=== PATIENT | male | born 1955 | race Caucasian/White ===

== ENCOUNTER 2017-07-19 09:25 | Emergency (ER) | payer MEDICARE, MEDICAID ==
[2017-07-19 09:35] VITALS: BP 153/86
--- NOTE | 2017-07-19 09:56 | EDM.PDOC ---
ED HPI GENERAL MEDICAL PROBLEM - General Chief Complaint: Lower Extremity Injury/Pain Stated Complaint: FELL AND HAS HIP PAIN, Time Seen by Provider: 07/19/17 09:40 Source of Information: Reports: Patient History Limitations: Reports: No Limitations - History of Present Illness INITIAL COMMENTS - FREE TEXT/NARRATIVE: This 61 yo male patient was brought to the ED with left hip pain due to a fall in the shower this morning. The patient reports he slipped while attempting to get out of the shower this morning. The patient is a [facility] patient. The patient reports his current pain is a 6/10 with increased pain with palpation and walking. The patient has not taken anything for temporary symptom relief. The patient's caregiver accompanied him to the ED. Onset: Today Onset Date: 07/19/17 Onset Time: 05:00 Duration: Constant Location: Reports: Lower Extremity, Left (posterior hip) Quality: Reports: Ache, Sharp Severity: Moderate Improves with: Reports: None Worsens with: Reports: None Associated Symptoms: Reports: No Other Symptoms Left Hip Pain Score (Numeric/FACES): 6 - Related Data Allergies Allergy/AdvReac Type Severity Reaction Status Date / Time Milk Containing Products Allergy Cannot Verified 07/19/17 09:44 Remember mold Allergy Cannot Verified 07/19/17 09:44 Remember pollen extracts Allergy Cannot Verified 07/19/17 09:44 Remember ragweed pollen Allergy Cannot Verified 07/19/17 09:44 Remember dust Allergy Cannot Uncoded 07/19/17 09:44 Remember Home Meds: Home Meds Carbamide Peroxide [Debrox] 2 drop OT WEEKLY 12/21/15 [History] Fluticasone Propionate [Flonase] 2 spray NASBOTH DAILY 12/21/15 [History] atorvaSTATin [Lipitor] 40 mg PO BEDTIME 12/21/15 [History] clonazePAM [Clonazepam] 0.5 mg PO BID 12/21/15 [History] Multivitamin [Multivitamins] 1 each PO DAILY 07/19/17 [History] Venlafaxine [Effexor XR] 37.5 mg PO DAILY 07/19/17 [History] Past Medical History Cardiovascular History: Reports: High Cholesterol Gastrointestinal History: Reports: GERD Neurological History: Reports: Other (See Below) Other Neuro History: Mild intellectual disabilites, intermittent explosive disorder, Paraphilia Psychiatric History: Reports: Anxiety, Developmental Delay Social & Family History - Family History Family Medical History: Noncontributory - Tobacco Use Smoking Status *Q: Never Smoker Second Hand Smoke Exposure: No - Recreational Drug Use Recreational Drug Use: No Review of Systems - Review of Systems Review Of Systems: ROS reveals no pertinent complaints other than HPI. ED EXAM, GENERAL - Physical Exam Exam: See Below Exam Limited By: No Limitations General Appearance: Alert, WD/WN, Moderate Distress Eye Exam: Bilateral Eye: EOMI, Normal Inspection, PERRL Ears: Normal External Exam, Normal Canal, Hearing Grossly Normal, Normal TMs Nose: Normal Inspection, Normal Mucosa, No Blood Throat/Mouth: Normal Inspection, Normal Lips, Normal Teeth, Normal Gums, Normal Oropharynx, Normal Voice, No Airway Compromise Head: Atraumatic, Normocephalic Neck: Normal Inspection, Supple, Non-Tender, Full Range of Motion Respiratory/Chest: No Respiratory Distress, Lungs Clear, Normal Breath Sounds, No Accessory Muscle Use, Chest Non-Tender Cardiovascular: Normal Peripheral Pulses, Regular Rate, Rhythm, No Edema, No Gallop, No JVD, No Murmur, No Rub GI/Abdominal: Normal Bowel Sounds, Soft, Non-Tender, No Organomegaly, No Distention, No Abnormal Bruit, No Mass (Male) Exam: Deferred Rectal (Males) Exam: Deferred Back Exam: Normal Inspection, Full Range of Motion, NT Extremities: Normal Range of Motion, No Pedal Edema, Normal Capillary Refill, Leg Pain (left posterior hip and pelvic pain) Neurological: Alert, Oriented, CN II-XII Intact, Normal Cognition, Normal Gait, Normal Reflexes, No Motor/Sensory Deficits Psychiatric: Normal Affect, Normal Mood Skin Exam: Warm, Dry, Intact, Normal Color, No Rash Lymphatic: No Adenopathy Course - Vital Signs Last Recorded V/S: Last Vital Signs Temp 36.9 C 07/19/17 09:34 Pulse 95 07/19/17 09:34 Resp 16 07/19/17 09:34 BP 153/86 H 07/19/17 09:34 Pulse Ox 99 07/19/17 09:34 Departure - Departure Time of Disposition: 10:23 Disposition: Home, Self-Care 01 Condition: Fair Clinical Impression: Contusion of left hip Qualifiers: Encounter type: initial encounter Qualified Code(s): S70.02XA - Contusion of left hip, initial encounter - Discharge Information Instructions: Hip Pain, Contusion, [id number] Forms: ED Department Discharge Care Plan Goals: The patient was advised of the examination and x-ray results during the visit. The patient was advised to take Tylenol or ibuprofen as directed for temporary symptom relief. If the patient has any additional symptoms or concerns, the patient should follow-up with his primary care facility or return to the emergency department.
--- NOTE | 2017-07-19 10:21 | CR ---
Clinical history: 61-year-old male injured in a fall (in shower) complaining of left hip pain. Interpretation: AP pelvis/hips and AP/frog lateral views of the left hip reveal no sign of acute frac ture or hip dislocation. Asymmetric severe lower lumbar disc disease and reactive arthritic changes L4-5 level, on the right. Symmetric spacing normal-appearing SI and hip joints without appreciable arthritic degenerative georges e. No foreign bodies.
== END 2017-07-19 10:37 | disposition home or self-care (01) ==
LOC: DL.ED 09:25
DX: S70.02XA Contusion of left hip, initial encounter (principal); E78.00 Pure hypercholesterolemia, unspecified; F41.9 Anxiety disorder, unspecified; Z79.899 Other long term (current) drug therapy; Z91.048 Other nonmedicinal substance allergy status; Z91.011 Allergy to milk products; W18.2XXA Fall in (into) shower or empty bathtub, initial encounter
CPT/HCPCS: 99283

== ENCOUNTER 2019-08-13 15:30 | Emergency (ER) | payer MEDICARE, MEDICAID ==
[2019-08-13 15:36] VITALS: BP 144/73; PULSE 98
--- NOTE | 2019-08-13 15:52 | EDM.PDOC ---
ED HPI GENERAL MEDICAL PROBLEM - General Chief Complaint: Cardiovascular Problem Stated Complaint: HIGH BP, DISORIENTATION Time Seen by Provider: 08/13/19 15:46 Source of Information: Reports: Family History Limitations: Reports: Altered Mental Status - History of Present Illness INITIAL COMMENTS - FREE TEXT/NARRATIVE: family states pt been confused and worried about stroke and possibly flu and maybe other things. also his effexor has been increased. Treatments BANQUET PILOT: Reports: IV/IO, Other (see below) Other Treatments BANQUET PILOT: labs - Related Data Allergies Allergy/AdvReac Type Severity Reaction Status Date / Time Milk Containing Products Allergy Cannot Verified 08/13/19 15:55 Remember mold Allergy Cannot Verified 08/13/19 15:55 Remember pollen extracts Allergy Cannot Verified 08/13/19 15:55 Remember ragweed pollen Allergy Cannot Verified 08/13/19 15:55 Remember dust Allergy Cannot Uncoded 08/13/19 15:55 Remember Home Meds: Home Meds Carbamide Peroxide [Debrox] 2 drop OT WEEKLY 12/21/15 [History] Fluticasone Propionate [Flonase] 2 spray NASBOTH DAILY 12/21/15 [History] atorvaSTATin [Lipitor] 40 mg PO BEDTIME 12/21/15 [History] clonazePAM [Clonazepam] 0.5 mg PO BID 12/21/15 [History] Multivitamin [Multivitamins] 1 each PO DAILY 07/19/17 [History] Venlafaxine [Effexor XR] 37.5 mg PO DAILY 07/19/17 [History] Past Medical History HEENT History: Reports: Impaired Vision Cardiovascular History: Reports: High Cholesterol, Hypertension Respiratory History: Reports: None Gastrointestinal History: Reports: GERD Genitourinary History: Reports: None Musculoskeletal History: Reports: None Neurological History: Reports: Other (See Below) Other Neuro History: Mild intellectual disabilites, intermittent explosive disorder, Paraphilia Psychiatric History: Reports: Anxiety, Developmental Delay Endocrine/Metabolic History: Reports: None Hematologic History: Reports: None Immunologic History: Reports: None Oncologic (Cancer) History: Reports: None Dermatologic History: Reports: None - Infectious Disease History Infectious Disease History: Reports: None - Past Surgical History Head Surgeries/Procedures: Reports: None Social & Family History - Family History Family Medical History: Noncontributory - Tobacco Use Smoking Status *Q: Never Smoker - Caffeine Use Caffeine Use: Reports: None - Recreational Drug Use Recreational Drug Use: No ED ROS GENERAL - Review of Systems Review Of Systems: Comprehensive ROS is negative, except as noted in HPI. ED EXAM, GENERAL - Physical Exam Exam: See Below Exam Limited By: No Limitations General Appearance: Alert, WD/WN, Mild Distress, Other (discomfort) Ears: Hearing Grossly Normal Throat/Mouth: Normal Voice, No Airway Compromise Head: Atraumatic Neck: Non-Tender, Full Range of Motion Respiratory/Chest: No Respiratory Distress Cardiovascular: Regular Rate, Rhythm GI/Abdominal: Soft, Non-Tender Neurological: Alert, No Motor/Sensory Deficits Psychiatric: Flat Affect Skin Exam: Warm, Dry, Normal Color Lymphatic: No Adenopathy Course - Vital Signs Last Recorded V/S: Last Vital Signs Temp 36.5 C 08/13/19 15:35 Pulse 98 08/13/19 15:35 Resp 20 08/13/19 15:35 BP 144/73 H 08/13/19 15:35 Pulse Ox 100 08/13/19 15:35 - Orders/Labs/Meds Orders: Active Orders 24 hr Category Date Time Status EKG 12 Lead [EKG Documentation Completion] [RC] STAT Care 08/13/19 15:43 Active Sanford Catheter Insertion [Insert Urinary Catheter] [OM. Care 08/13/19 16:45 Ordered PC] Q24H Urinary Catheter Assessment [RC] ASDIRECTED Care 08/13/19 16:44 Active Labs: Laboratory Tests 08/13/19 08/13/19 08/13/19 Range/Units 16:00 16:00 16:00 WBC 9.1 (5.0-10.0) 10^3/uL RBC 4.84 (4.6-6.2) 10^6/uL Hgb 14.9 (14.0-18.0) g/dL Hct 43.7 (40.0-54.0) % MCV 90.3 D (80-100) fL MCH 30.8 (27.0-34.0) pg MCHC 34.1 (33.0-35.0) g/dL Plt Count 297 (150-450) 10^3/uL Neut % (Auto) 66.4 (42.2-75.2) % Lymph % (Auto) 19.1 L (20.5-50.1) % [place] % (Auto) 11.9 H (2-8) % Eos % (Auto) 2.3 (1.0-3.0) % Baso % (Auto) 0.3 (0.0-1.0) % Sodium 139 (135-145) mmol/L Potassium 4.1 (3.6-5.0) mmol/L Chloride 103 (101-111) mmol/L Carbon Dioxide 25.0 (21.0-31.0) mmol/L Anion Gap 15.1 BUN 21 H (7-18) mg/dL Creatinine 1.1 (0.6-1.3) mg/dL Est Cr Clr Drug Dosing 59.02 mL/min Estimated GFR (MDRD) > 60 BUN/Creatinine Ratio 19.09 Glucose 135 H (74-105) mg/dL Lactic Acid 1.7 (0.5-2.0) mmol/L Calcium 9.3 (8.4-10.2) mg/dl Total Bilirubin 0.5 (0.2-1.0) mg/dL AST 22 (10-42) IU/L ALT 23 (10-60) IU/L Alkaline Phosphatase 52 (42-121) IU/L Troponin I < 0.02 (0.00-0.02) ng/ml Total Protein 7.5 (6.7-8.2) g/dl Albumin 3.9 (3.2-5.5) g/dl Globulin 3.6 Albumin/Globulin Ratio 1.08 Urine Color (YELLOW) Urine Appearance (CLEAR) Urine pH (5.0-9.0) Ur Specific [place] (1.005-1.030) Urine Protein (NEGATIVE) Urine Glucose (UA) (NEGATIVE) Urine Ketones (NEGATIVE) Urine Occult Blood (NEGATIVE) Urine Nitrite (NEGATIVE) Urine Bilirubin (NEGATIVE) Urine Urobilinogen (0.2-1.0) mg/dL Ur Leukocyte Esterase (NEGATIVE) Urine RBC /HPF Urine WBC (0-5/HPF) /HPF Ur Epithelial Cells (NOT SEEN) /HPF Urine Bacteria (0-FEW/HPF) /HPF Urine Mucus (NOT SEEN) /LPF 08/13/19 Range/Units 16:57 WBC (5.0-10.0) 10^3/uL RBC (4.6-6.2) 10^6/uL Hgb (14.0-18.0) g/dL Hct (40.0-54.0) % MCV (80-100) fL MCH (27.0-34.0) pg MCHC (33.0-35.0) g/dL Plt Count (150-450) 10^3/uL Neut % (Auto) (42.2-75.2) % Lymph % (Auto) (20.5-50.1) % [place] % (Auto) (2-8) % Eos % (Auto) (1.0-3.0) % Baso % (Auto) (0.0-1.0) % Sodium (135-145) mmol/L Potassium (3.6-5.0) mmol/L Chloride (101-111) mmol/L Carbon Dioxide (21.0-31.0) mmol/L Anion Gap BUN (7-18) mg/dL Creatinine (0.6-1.3) mg/dL Est Cr Clr Drug Dosing mL/min Estimated GFR (MDRD) BUN/Creatinine Ratio Glucose (74-105) mg/dL Lactic Acid (0.5-2.0) mmol/L Calcium (8.4-10.2) mg/dl Total Bilirubin (0.2-1.0) mg/dL AST (10-42) IU/L ALT (10-60) IU/L Alkaline Phosphatase (42-121) IU/L Troponin I (0.00-0.02) ng/ml Total Protein (6.7-8.2) g/dl Albumin (3.2-5.5) g/dl Globulin Albumin/Globulin Ratio Urine Color Yellow (YELLOW) Urine Appearance Slightly cloudy (CLEAR) Urine pH 6.0 (5.0-9.0) Ur Specific [place] >= 1.030 (1.005-1.030) Urine Protein Negative (NEGATIVE) Urine Glucose (UA) Negative (NEGATIVE) Urine Ketones Negative (NEGATIVE) Urine Occult Blood Trace-intact H (NEGATIVE) Urine Nitrite Negative (NEGATIVE) Urine Bilirubin Negative (NEGATIVE) Urine Urobilinogen 0.2 (0.2-1.0) mg/dL Ur Leukocyte Esterase Negative (NEGATIVE) Urine RBC 5-10 H /HPF Urine WBC 0-5 (0-5/HPF) /HPF Ur Epithelial Cells Few (NOT SEEN) /HPF Urine Bacteria Rare (0-FEW/HPF) /HPF Urine Mucus Few H (NOT SEEN) /LPF - Re-Assessments/Exams Free Text/Narrative Re-Assessment/Exam: 08/13/19 17:17 results discussed with family. Departure - Departure Time of Disposition: 17:17 Disposition: Home, Self-Care 01 Condition: Good Clinical Impression: Bronchitis Instructions: Upper Respiratory Infection, Adult, [id number] Forms: ED Department Discharge Additional Instructions: 1) rest 2) drink lots of liquids 3) follow up at clinic rx given; z-penny Sepsis Event Note - Evaluation Sepsis Screening Result: No Definite Risk - Focused Exam Vital Signs: Vital Signs Temp Pulse Resp BP Pulse Ox 08/13/19 15:35 36.5 C 98 20 144/73 H 100 Date Exam was Performed: 08/13/19 Time Exam was Performed: 17:16 - My Orders Last 24 Hours: My Active Orders 08/13/19 15:43 EKG 12 Lead [EKG Documentation Completion] [RC] STAT 08/13/19 16:44 Urinary Catheter Assessment [RC] ASDIRECTED 08/13/19 16:45 Sanford Catheter Insertion [Insert Urinary Catheter] [OM.PC] Q24H - Assessment/Plan Last 24 Hours: My Active Orders 08/13/19 15:43 EKG 12 Lead [EKG Documentation Completion] [RC] STAT 08/13/19 16:44 Urinary Catheter Assessment [RC] ASDIRECTED 08/13/19 16:45 Sanford Catheter Insertion [Insert Urinary Catheter] [OM.PC] Q24H
--- NOTE | 2019-08-13 16:20 | CR ---
EXAMINATION: Chest 1V Frontal SEX: Male AGE: 63 years CLINICAL HISTORY: 63-year-old "confused" male. INTERPRETATION: 1. Patchy bibasilar atelectasis reflecting less than optimal inspiratory effort. 2. Normal cardiac silhouette without pulmonary vascular congestion, cephalization of flow, alveolar edema or dependent effusion. 3. No lung mass, hilar lymphadenopathy or focal lobar pneumonia. 4. No pneumothorax or pneumomediastinum. CONCLUSION: Basilar atelectasis. No signs of heart failure or lobar pneumonia.
--- NOTE | 2019-08-13 16:28 | CT ---
EXAMINATION: Head wo Cont SEX: Male AGE: 63 years CLINICAL HISTORY: 63-year-old male emergency department with CONFUSION. Scan technique: Volume acquisition of data emergency unenhanced CT scan of the head and brain obtained with patient lying supine on the Siemens multi slice scanner [place], [place]. All data archived in the PACS system for storage, reformatting axial/sagittal/coronal planes and study (bone/brain windows). Interpretation: Abnormal. 1. Hyperostosis frontalis interna. Otherwise uniformly thick bony calvarium without sign of fracture, underlying brain contusion or epidural/subdural hematoma. 2. Mild atrophy pattern symmetric with underlying mirror-image normal ventricular system. Physiologic pineal calcification. 3. No supratentorial or posterior fossa mass lesion. 4. *Several subtle scattered areas of decreased attenuation identified in the periventricular white matter of both cerebral hemispheres suggesting microvascular ischemic change. Diabetic? Hypertension? Smoker? Note: Isolated large area of apparent infarct (ischemic) involving the occipital lobe (posteriorly), left cerebral hemisphere. 5. No sign of acute intracerebral/intraventricular/subarachnoid bleed. 6. Symmetric clear pneumatization of the paranasal and mastoid sinuses i.e. no sinusitis. 7. Cerebellum and brainstem unremarkable. CONCLUSION: Generalized microvascular ischemic changes and probable ischemic infarct left occipital lobe. No Intracranial mass, hydrocephalus or bleed.
[2019-08-13 16:33] LABS: ANION GAP 15.1; CHLORIDE,CL 103 mmol/L (101-111); SODIUM,NA 139 mmol/L (135-145)
== END 2019-08-13 17:25 | disposition home or self-care (01) ==
LOC: DL.ED 15:30
DX: J40 Bronchitis, not specified as acute or chronic (principal); I10 Essential (primary) hypertension; E78.00 Pure hypercholesterolemia, unspecified; Z91.011 Allergy to milk products; Z77.120 Contact with and (suspected) exposure to mold (toxic); Z91.048 Other nonmedicinal substance allergy status; Z79.899 Other long term (current) drug therapy
CPT/HCPCS: 36415; 51702; 70450; 71045; 80053; 81001; 83605; 84484; 85025; 87804; 93005; 99283; 99285-25

== ENCOUNTER 2019-08-22 13:35 | Emergency (ER) | payer MEDICARE, MEDICAID ==
[2019-08-22 13:51] VITALS: BP 150/80; PULSE 103
--- NOTE | 2019-08-22 14:49 | CR ---
EXAMINATION: Abdomen 2V AP Flat Upright SEX: Male AGE: 63 years CLINICAL HISTORY: 63-year-old male emergency department complaining of ABDOMEN PAIN (anxiety). INTERPRETATION: 1. Mild dorsolumbar scoliosis, chronic lower lumbar disc disease and hypertrophic spondylosis. 2. Stool traces the normal caliber colon. No abdominal soft tissue mass lesion or signs of mechanical bowel obstruction or free intraperitoneal air. 3. No foreign bodies. No pathologic calcifications. 4. Lung bases clear. CONCLUSION: Nonspecific plain film exam abdomen.
[2019-08-22 14:54] LABS: ANION GAP 14.9; CHLORIDE,CL 102 mmol/L (101-111); SODIUM,NA 137 mmol/L (135-145)
[2019-08-22] MEDS ORDERED: LORazepam 1 MG Tab PO ONE (15:08)
--- NOTE | 2019-08-22 15:09 | EDM.PDOC ---
ED HPI GENERAL MEDICAL PROBLEM - General Chief Complaint: Abdominal Pain Stated Complaint: PAIN IN BOTTOM Time Seen by Provider: 08/22/19 14:00 Source of Information: Reports: Patient, RN, RN Notes Reviewed, Other (half-way staff) History Limitations: Reports: No Limitations - History of Present Illness INITIAL COMMENTS - FREE TEXT/NARRATIVE: patient presents to ER with staff from his nursing home. Staff states he has been having a lot of anxiety, yelling, screaming, unable to calm him. Staff state he has had some changes recently that have upset him regarding his day-to-day living and activities. patient was seen in the clinic, and was told to be brought to ER. Upon arrival at the ER, patient complains of pain in his rectum. He states his last bowel movement was the day before.denies the feeling of needing to throw up. Onset: Gradual Rectal Pain Score (Numeric/FACES): 6 - Related Data Allergies Allergy/AdvReac Type Severity Reaction Status Date / Time Milk Containing Products Allergy Cannot Verified 08/22/19 13:51 Remember mold Allergy Cannot Verified 08/22/19 13:51 Remember pollen extracts Allergy Cannot Verified 08/22/19 13:51 Remember ragweed pollen Allergy Cannot Verified 08/22/19 13:51 Remember dust Allergy Cannot Uncoded 08/13/19 15:55 Remember Home Meds: Home Meds Carbamide Peroxide [Debrox] 2 drop OT WEEKLY 12/21/15 [History] Fluticasone Propionate [Flonase] 2 spray NASBOTH DAILY 12/21/15 [History] atorvaSTATin [Lipitor] 40 mg PO BEDTIME 12/21/15 [History] clonazePAM [Clonazepam] 0.5 mg PO TID 12/21/15 [History] Multivitamin [Multivitamins] 1 each PO DAILY 07/19/17 [History] lisinopriL [Lisinopril] 10 mg PO DAILY 08/22/19 [History] Past Medical History HEENT History: Reports: Impaired Vision Cardiovascular History: Reports: High Cholesterol, Hypertension Respiratory History: Reports: None Gastrointestinal History: Reports: GERD Genitourinary History: Reports: None Musculoskeletal History: Reports: None Neurological History: Reports: Other (See Below) Other Neuro History: Mild intellectual disabilites, intermittent explosive disorder, Paraphilia Psychiatric History: Reports: Anxiety, Developmental Delay Endocrine/Metabolic History: Reports: None Hematologic History: Reports: None Immunologic History: Reports: None Oncologic (Cancer) History: Reports: None Dermatologic History: Reports: None - Infectious Disease History Infectious Disease History: Reports: None - Past Surgical History Head Surgeries/Procedures: Reports: None Social & Family History - Family History Family Medical History: Noncontributory - Tobacco Use Smoking Status *Q: Never Smoker - Caffeine Use Caffeine Use: Reports: None - Recreational Drug Use Recreational Drug Use: No ED ROS GENERAL - Review of Systems Review Of Systems: Comprehensive ROS is negative, except as noted in HPI. ED EXAM, GI/ABD - Physical Exam Exam: See Below Exam Limited By: No Limitations General Appearance: Alert, WD/WN, No Apparent Distress Eyes: Bilateral: Normal Appearance, EOMI Ears: Normal External Exam, Hearing Grossly Normal Nose: Normal Inspection Throat/Mouth: Normal Inspection, Normal Voice, No Airway Compromise Head: Atraumatic, Normocephalic Neck: Normal Inspection, Supple, Non-Tender, Full Range of Motion Respiratory/Chest: No Respiratory Distress, Lungs Clear, Normal Breath Sounds, No Accessory Muscle Use, Chest Non-Tender Cardiovascular: Normal Peripheral Pulses, Regular Rate, Rhythm, No Edema, No Gallop, No JVD, No Murmur, No Rub GI/Abdominal Exam: Normal Bowel Sounds, Soft, Non-Tender, No Organomegaly, No Distention, No Abnormal Bruit, No Mass, Pelvis Stable (Male) Exam: Deferred Rectal (Males) Exam: Deferred Back Exam: Normal Inspection, Full Range of Motion, NT Extremities: Normal Inspection, Normal Range of Motion, Non-Tender, Normal Capillary Refill, No Pedal Edema Neurological: Alert, Oriented, CN II-XII Intact, Normal Cognition, Normal Gait, Normal Reflexes, No Motor/Sensory Deficits Psychiatric: Anxious Skin Exam: Warm, Dry, Intact, Normal Color, No Rash Lymphatic: No Adenopathy Course - Vital Signs Last Recorded V/S: Last Vital Signs Temp 98 F 08/22/19 13:47 Pulse 103 H 08/22/19 13:47 Resp 16 08/22/19 13:47 BP 150/80 H 08/22/19 13:47 Pulse Ox 98 08/22/19 13:47 - Orders/Labs/Meds Labs: Laboratory Tests 08/22/19 08/22/19 08/22/19 Range/Units 14:22 14:22 16:11 WBC 7.7 (5.0-10.0) 10^3/uL RBC 4.68 (4.6-6.2) 10^6/uL Hgb 14.4 (14.0-18.0) g/dL Hct 42.3 (40.0-54.0) % MCV 90.4 (80-100) fL MCH 30.8 (27.0-34.0) pg MCHC 34.0 (33.0-35.0) g/dL Plt Count 313 (150-450) 10^3/uL Neut % (Auto) 62.0 (42.2-75.2) % Lymph % (Auto) 24.2 (20.5-50.1) % [place] % (Auto) 10.4 H (2-8) % Eos % (Auto) 2.9 (1.0-3.0) % Baso % (Auto) 0.5 (0.0-1.0) % Sodium 137 (135-145) mmol/L Potassium 3.9 (3.6-5.0) mmol/L Chloride 102 (101-111) mmol/L Carbon Dioxide 24.0 (21.0-31.0) mmol/L Anion Gap 14.9 BUN 17 (7-18) mg/dL Creatinine 1.0 (0.6-1.3) mg/dL Est Cr Clr Drug Dosing 62.49 mL/min Estimated GFR (MDRD) > 60 BUN/Creatinine Ratio 17.00 Glucose 116 H (74-105) mg/dL Calcium 9.2 (8.4-10.2) mg/dl Total Bilirubin 0.4 (0.2-1.0) mg/dL AST 24 (10-42) IU/L ALT 26 (10-60) IU/L Alkaline Phosphatase 51 (42-121) IU/L Total Protein 7.3 (6.7-8.2) g/dl Albumin 3.7 (3.2-5.5) g/dl Globulin 3.6 Albumin/Globulin Ratio 1.03 Urine Color Yellow (YELLOW) Urine Appearance Clear (CLEAR) Urine pH 7.0 (5.0-9.0) Ur Specific [place] 1.015 (1.005-1.030) Urine Protein Negative (NEGATIVE) Urine Glucose (UA) Negative (NEGATIVE) Urine Ketones Negative (NEGATIVE) Urine Occult Blood Negative (NEGATIVE) Urine Nitrite Negative (NEGATIVE) Urine Bilirubin Negative (NEGATIVE) Urine Urobilinogen 0.2 (0.2-1.0) mg/dL Ur Leukocyte Esterase Negative (NEGATIVE) Meds: Medications Discontinued Medications Generic Name Dose Route Start Last Admin Trade Name Heath PRN Reason Stop Dose Admin Lorazepam 1 mg 08/22/19 15:08 08/22/19 15:31 Ativan PO 08/22/19 15:09 1 mg ONETIME ONE Administration - Radiology Interpretation Free Text/Narrative:: Flat and upright abdomen: Nonspecific plain film exam abdomen. See rad report. Departure - Departure Time of Disposition: 15:52 Disposition: DC/Tfer to [facility]04 Condition: Good Clinical Impression: Anxiety - Discharge Information *PRESCRIPTION DRUG MONITORING PROGRAM REVIEWED*: No *COPY OF PRESCRIPTION DRUG MONITORING REPORT IN PATIENT JOSEPH: No Instructions: Panic Attack, [id number], Abdominal Pain, Adult, [id number] Forms: ED Department Discharge Additional Instructions: Follow up with your Primary care facility next week May return to ER with any further problems Sepsis Event Note - Evaluation Sepsis Screening Result: No Definite Risk - Focused Exam Vital Signs: Vital Signs Temp Pulse Resp BP Pulse Ox 08/22/19 13:47 98 F 103 H 16 150/80 H 98 Date Exam was Performed: 08/22/19 Time Exam was Performed: 16:52
== END 2019-08-22 16:54 ==
LOC: DL.ED 13:35
DX: F41.9 Anxiety disorder, unspecified (principal); I10 Essential (primary) hypertension; E78.00 Pure hypercholesterolemia, unspecified; Z91.011 Allergy to milk products; Z91.048 Other nonmedicinal substance allergy status; Z79.899 Other long term (current) drug therapy
CPT/HCPCS: 36415; 74019; 80053; 81003; 85025; 99283; 99284; A9270

== ENCOUNTER 2019-09-04 02:28 | Emergency (ER) | payer MEDICARE, MEDICAID ==
--- NOTE | 2019-09-03 23:47 | EDM.PDOC ---
ED HPI GENERAL MEDICAL PROBLEM - General Stated Complaint: AMBULANCE Time Seen by Provider: 09/03/19 23:46 Source of Information: Reports: EMS History Limitations: Reports: Other (cognitive challenged, Residential staff and medications, problem list not immediately available on arrival ) - History of Present Illness INITIAL COMMENTS - FREE TEXT/NARRATIVE: ED via [facility], Patient in [facility] setting, Found on floor beside bed after hearing "soft bumb", Initially seemed difficult to awaken per summer clerk, Alert for EMS, Appeared, to have had Emesis while lying down and moist breathing. Staff report recent change of residence and patient has been very anxious lately. Baseline, some simple verbalization, Ambulates independently and able to toilet self. - Related Data Allergies Allergy/AdvReac Type Severity Reaction Status Date / Time Milk Containing Products Allergy Cannot Verified 08/22/19 13:51 Remember mold Allergy Cannot Verified 08/22/19 13:51 Remember pollen extracts Allergy Cannot Verified 08/22/19 13:51 Remember ragweed pollen Allergy Cannot Verified 08/22/19 13:51 Remember dust Allergy Cannot Uncoded 08/13/19 15:55 Remember Home Meds: Home Meds Carbamide Peroxide [Debrox] 2 drop OT WEEKLY 12/21/15 [History] Fluticasone Propionate [Flonase] 2 spray NASBOTH DAILY 12/21/15 [History] atorvaSTATin [Lipitor] 40 mg PO BEDTIME 12/21/15 [History] clonazePAM [Clonazepam] 0.5 mg PO TID 12/21/15 [History] Multivitamin [Multivitamins] 1 each PO DAILY 07/19/17 [History] lisinopriL [Lisinopril] 10 mg PO DAILY 08/22/19 [History] Past Medical History HEENT History: Reports: Impaired Vision Cardiovascular History: Reports: High Cholesterol, Hypertension Respiratory History: Reports: None Gastrointestinal History: Reports: GERD Genitourinary History: Reports: None Musculoskeletal History: Reports: None Neurological History: Reports: Other (See Below) Other Neuro History: Mild intellectual disabilites, intermittent explosive disorder, Paraphilia Psychiatric History: Reports: Anxiety, Developmental Delay Endocrine/Metabolic History: Reports: None Hematologic History: Reports: None Immunologic History: Reports: None Oncologic (Cancer) History: Reports: None Dermatologic History: Reports: None - Infectious Disease History Infectious Disease History: Reports: None - Past Surgical History Head Surgeries/Procedures: Reports: None Social & Family History - Family History Family Medical History: Noncontributory - Caffeine Use Caffeine Use: Reports: None Review of Systems - Review of Systems Review Of Systems: Comprehensive ROS is negative, except as noted in HPI. ED EXAM, GENERAL - Physical Exam Exam: See Below Exam Limited By: No Limitations General Appearance: Alert, No Apparent Distress (denies pain) Eye Exam: Bilateral Eye: EOMI, PERRL Ears: Normal External Exam Nose: Normal Inspection Throat/Mouth: Normal Inspection, Normal Lips, Normal Oropharynx. No: Normal Teeth Head: Atraumatic, Normocephalic Neck: Normal Inspection Respiratory/Chest: No Respiratory Distress, Rhonchi (upper airway). No: Accessory Muscle Use Cardiovascular: Normal Peripheral Pulses, Regular Rate, Rhythm, No Edema GI/Abdominal: Normal Bowel Sounds, Soft, No Distention (Male) Exam: No Hernia Back Exam: Normal Inspection Extremities: Normal Inspection, Normal Range of Motion Neurological: Alert, Normal Reflexes, Other (moving all extremities, 1 word responses, appropriate to questions. able to follow simple commands. Appears to recognize [facility] on arrival. ). No: Normal Cognition, No Motor/ Sensory Deficits Skin Exam: Warm, Dry, Intact, Normal Color Course - Orders/Labs/Meds Orders: Active Orders 24 hr Category Date Time Status EKG Documentation Completion [RC] URGENT Care 09/03/19 23:52 Active Cervical Spine wo Cont [CT] Urgent Exams 09/04/19 00:21 Taken Chest 1V Frontal [CR] Urgent Exams 09/03/19 23:47 Stop Req Chest Abdomen Pelvis wo Cont [CT] Urgent Exams 09/04/19 00:02 Taken Head wo Cont [CT] Urgent Exams 09/04/19 00:21 Taken Pelvis 1V or 2V [CR] Urgent Exams 09/03/19 23:47 Stop Req CULTURE BLOOD [BC] Stat Lab 09/03/19 23:52 Results CULTURE BLOOD [BC] Stat Lab 09/03/19 23:52 Results Sodium Chloride 0.9% [Normal Saline] 1,000 ml Med 09/04/19 05:12 Active IV .BOLUS Blood Culture x2 Reflex Set [OM.PC] Stat Oth 09/03/19 23:52 Ordered Medication Orders Sodium Chloride (Normal Saline) 1,000 mls @ 999 mls/hr IV .BOLUS ONE Stop: 09/04/19 06:12 Last Admin: 09/04/19 05:07 Dose: 999 mls/hr Labs: Laboratory Tests 09/03/19 09/03/19 09/03/19 Range/Units 23:46 23:46 23:46 WBC 12.4 H (5.0-10.0) 10^3/uL RBC 4.51 L (4.6-6.2) 10^6/uL Hgb 13.9 L (14.0-18.0) g/dL Hct 41.1 (40.0-54.0) % MCV 91.1 (80-100) fL MCH 30.8 (27.0-34.0) pg MCHC 33.8 (33.0-35.0) g/dL Plt Count 345 (150-450) 10^3/uL Neut % (Auto) 48.8 (42.2-75.2) % Lymph % (Auto) 38.2 (20.5-50.1) % [place] % (Auto) 11.2 H (2-8) % Eos % (Auto) 1.5 (1.0-3.0) % Baso % (Auto) 0.3 (0.0-1.0) % Add Manual Diff Yes Neutrophils % (Manual) 49 (42-75) % Band Neutrophils % 5 % Lymphocytes % (Manual) 33 (20-50) % Monocytes % (Manual) 12 H (2-8) % Eosinophils % (Manual) 1 (1-3) % Sodium 136 (135-145) mmol/L Potassium 3.5 L (3.6-5.0) mmol/L Chloride 101 (101-111) mmol/L Carbon Dioxide 20.0 L (21.0-31.0) mmol/L Anion Gap 18.5 BUN 17 (7-18) mg/dL Creatinine 1.2 (0.6-1.3) mg/dL Est Cr Clr Drug Dosing TNP Estimated GFR (MDRD) > 60 BUN/Creatinine Ratio 14.16 Glucose 183 H (74-105) mg/dL Lactic Acid 6.4 H* (0.5-2.0) mmol/L Calcium 8.4 (8.4-10.2) mg/dl Total Bilirubin 0.6 (0.2-1.0) mg/dL AST 32 (10-42) IU/L ALT 25 (10-60) IU/L Alkaline Phosphatase 47 (42-121) IU/L Troponin I < 0.02 (0.00-0.02) ng/ml B-Natriuretic Peptide (0-100) pg/ml Total Protein 6.8 (6.7-8.2) g/dl Albumin 3.7 (3.2-5.5) g/dl Globulin 3.1 Albumin/Globulin Ratio 1.19 Amylase 44 (28-100) U/L Lipase 53 H (22-51) U/L Urine Color (YELLOW) Urine Appearance (CLEAR) Urine pH (5.0-9.0) Ur Specific [place] (1.005-1.030) Urine Protein (NEGATIVE) Urine Glucose (UA) (NEGATIVE) Urine Ketones (NEGATIVE) Urine Occult Blood (NEGATIVE) Urine Nitrite (NEGATIVE) Urine Bilirubin (NEGATIVE) Urine Urobilinogen (0.2-1.0) mg/dL Ur Leukocyte Esterase (NEGATIVE) 09/03/19 09/04/19 Range/Units 23:46 03:47 WBC (5.0-10.0) 10^3/uL RBC (4.6-6.2) 10^6/uL Hgb (14.0-18.0) g/dL Hct (40.0-54.0) % MCV (80-100) fL MCH (27.0-34.0) pg MCHC (33.0-35.0) g/dL Plt Count (150-450) 10^3/uL Neut % (Auto) (42.2-75.2) % Lymph % (Auto) (20.5-50.1) % [place] % (Auto) (2-8) % Eos % (Auto) (1.0-3.0) % Baso % (Auto) (0.0-1.0) % Add Manual Diff Neutrophils % (Manual) (42-75) % Band Neutrophils % % Lymphocytes % (Manual) (20-50) % Monocytes % (Manual) (2-8) % Eosinophils % (Manual) (1-3) % Sodium (135-145) mmol/L Potassium (3.6-5.0) mmol/L Chloride (101-111) mmol/L Carbon Dioxide (21.0-31.0) mmol/L Anion Gap BUN (7-18) mg/dL Creatinine (0.6-1.3) mg/dL Est Cr Clr Drug Dosing Estimated GFR (MDRD) BUN/Creatinine Ratio Glucose (74-105) mg/dL Lactic Acid (0.5-2.0) mmol/L Calcium (8.4-10.2) mg/dl Total Bilirubin (0.2-1.0) mg/dL AST (10-42) IU/L ALT (10-60) IU/L Alkaline Phosphatase (42-121) IU/L Troponin I (0.00-0.02) ng/ml B-Natriuretic Peptide 13 (0-100) pg/ml Total Protein (6.7-8.2) g/dl Albumin (3.2-5.5) g/dl Globulin Albumin/Globulin Ratio Amylase (28-100) U/L Lipase (22-51) U/L Urine Color Yellow (YELLOW) Urine Appearance Clear (CLEAR) Urine pH 7.0 (5.0-9.0) Ur Specific [place] 1.015 (1.005-1.030) Urine Protein Negative (NEGATIVE) Urine Glucose (UA) 100 H (NEGATIVE) Urine Ketones Negative (NEGATIVE) Urine Occult Blood Negative (NEGATIVE) Urine Nitrite Negative (NEGATIVE) Urine Bilirubin Negative (NEGATIVE) Urine Urobilinogen 0.2 (0.2-1.0) mg/dL Ur Leukocyte Esterase Negative (NEGATIVE) Meds: Medications Generic Name Dose Route Start Last Admin Trade Name Freq PRN Reason Stop Dose Admin Sodium Chloride 1,000 mls @ 999 mls/hr 09/04/19 05:12 09/04/19 05:07 Normal Saline IV 09/04/19 06:12 999 mls/hr .BOLUS ONE Administration Discontinued Medications Generic Name Dose Route Start Last Admin Trade Name Freq PRN Reason Stop Dose Admin Ceftriaxone Sodium 1 gm/ 50 mls @ 50 mls/hr 09/04/19 02:27 09/04/19 02:36 Sodium Chloride IV 09/04/19 03:26 50 mls/hr ONETIME ONE Administration Levetiracetam 500 mg/ Sodium 105 mls @ 400 mls/hr 09/04/19 04:16 09/04/19 04: 25 Chloride IV 09/04/19 04:30 400 mls/hr ONETIME ONE Administration Lorazepam 1 mg 09/04/19 04:11 09/04/19 04:17 Ativan IVPUSH 09/04/19 04:12 1 mg ONETIME ONE Administration Lorazepam Confirm 09/04/19 04:15 09/04/19 05:15 Ativan Administered 09/04/19 04:16 Not Given Dose 2 mg .ROUTE .STK-MED ONE Ondansetron HCl 4 mg 09/03/19 23:49 09/03/19 23:56 Zofran IVPUSH 09/03/19 23:50 4 mg ONETIME ONE Administration - Radiology Interpretation Free Text/Narrative:: 4 - Re-Assessments/Exams Free Text/Narrative Re-Assessment/Exam: 09/04/19 05:21 15, brief generalized seizure, sustained scratch to forehead from IV catheter tubing during seizure. Ativan and Keppra administered. Remote hx i=fo seizure in documents, TC Dr Roach , initial recommendation to keep in [facility]. Dr Joseph [facility] Hospitalist recommended Eval by Neurologist. Dr Rao Altbalaji accepting. Tx via [facility]. Sister Bonita telephone contact agreeable to transfer. 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 Stated patient would briefly make growling type noises and seemed to stare off. Patient alert, asking if get to go home soon. 09/04/19 05:21 BP Decreased , fluid bolus given BP improved. 09/04/19 05:28 [facility] here, patient continues alert, asking about Chuy, what time it is who is going with him. Departure - Departure Time of Disposition: 05:18 Disposition: DC/Tfer to Acute Hospital 02 Condition: Good Clinical Impression: Seizure disorder, Cough, Mentally challenged - Discharge Information *PRESCRIPTION DRUG MONITORING PROGRAM REVIEWED*: Not Applicable *COPY OF PRESCRIPTION DRUG MONITORING REPORT IN PATIENT JOSEPH: Not Applicable Referrals: PCP,None [Primary Care Provider] - Sepsis Event Note - Focused Exam Date Exam was Performed: 09/04/19 Time Exam was Performed: 05:25 - My Orders Last 24 Hours: My Active Orders 09/03/19 23:47 Chest 1V Frontal [CR] Urgent Pelvis 1V or 2V [CR] Urgent 09/03/19 23:52 EKG Documentation Completion [RC] URGENT CULTURE BLOOD [BC] Stat CULTURE BLOOD [BC] Stat Blood Culture x2 Reflex Set [OM.PC] Stat 09/04/19 00:02 Chest Abdomen Pelvis wo Cont [CT] Urgent 09/04/19 00:21 Cervical Spine wo Cont [CT] Urgent Head wo Cont [CT] Urgent 09/04/19 05:12 Sodium Chloride 0.9% [Normal Saline] 1,000 ml IV .BOLUS - Assessment/Plan Last 24 Hours: My Active Orders 09/03/19 23:47 Chest 1V Frontal [CR] Urgent Pelvis 1V or 2V [CR] Urgent 09/03/19 23:52 EKG Documentation Completion [RC] URGENT CULTURE BLOOD [BC] Stat CULTURE BLOOD [BC] Stat Blood Culture x2 Reflex Set [OM.PC] Stat 09/04/19 00:02 Chest Abdomen Pelvis wo Cont [CT] Urgent 09/04/19 00:21 Cervical Spine wo Cont [CT] Urgent Head wo Cont [CT] Urgent 09/04/19 05:12 Sodium Chloride 0.9% [Normal Saline] 1,000 ml IV .BOLUS
[2019-09-04 00:44] LABS: ANION GAP 18.5; CHLORIDE,CL 101 mmol/L (101-111); SODIUM,NA 136 mmol/L (135-145)
[~2019-09-04 02:28] MED LIST: Ondansetron 4 MG/2 ML SDV IVPUSH ONE; cefTRIAXone 1 GM in Sodium Chloride 0.9% 50 ML IV ONE
[2019-09-04] MEDS ORDERED: LORazepam 2 MG/ML SDV IVPUSH ONE (04:11)
[2019-09-04] MEDS ORDERED: LORazepam 2 MG/ML SDV ONE (04:15)
[2019-09-04] MEDS ORDERED: levETIRAcetam 500 MG in Sodium Chloride 0.9% 100 ML IV ONE (04:16)
[2019-09-04] MEDS ORDERED: Sodium Chloride 0.9% 1,000 ML IV ONE (05:12)
== END 2019-09-04 05:40 ==
LOC: DL.ED 02:28
DX: G40.409 Other generalized epilepsy and epileptic syndromes, not intractable, without status epilepticus (principal); F70 Mild intellectual disabilities; R05 Cough; E78.00 Pure hypercholesterolemia, unspecified; I10 Essential (primary) hypertension; Z91.011 Allergy to milk products; Z91.048 Other nonmedicinal substance allergy status; Z91.09 Other allergy status, other than to drugs and biological substances; Z79.899 Other long term (current) drug therapy
CPT/HCPCS: 36415; 70450; 71250; 72125; 74176; 80053; 81003; 82150; 83605; 83690; 83880; 84484; 85025; 87040; 87804; 96365; 96375; 99284; 99285; J0696; J1953; J2060; J2405; J7030; J7050

== ENCOUNTER 2019-11-07 13:12 | Emergency (ER) | payer MEDICARE, MEDICAID ==
--- NOTE | 2019-11-07 13:45 | EDM.PDOC ---
ED HPI GENERAL MEDICAL PROBLEM - General Chief Complaint: ENT Problem Stated Complaint: SORE THROAT Time Seen by Provider: 11/07/19 13:30 Source of Information: Reports: Patient, RN, RN Notes Reviewed, Significant Other (Caregiver) History Limitations: Reports: Other (DD) - History of Present Illness INITIAL COMMENTS - FREE TEXT/NARRATIVE: Dev. delayed pt from [facility] presented by caregiver with c/o sore throat. Pt denies any other complaints. Pt has not been wanting to take his medications. Denies fever, cough, N/V/D. Denies any recent travel, or exposure to any confirmed or suspected Covid-19 pts. The pt in not able to provide any further history. Onset: Unknown/Unsure Duration: Day(s): (2-3?), Constant Location: Reports: Other (Throat) Quality: Reports: Other (Sore throat) Severity: Moderate Improves with: Reports: None Worsens with: Reports: Eating Associated Symptoms: Reports: No Other Symptoms - Related Data Allergies Allergy/AdvReac Type Severity Reaction Status Date / Time Milk Containing Products Allergy Cannot Verified 08/22/19 13:51 Remember mold Allergy Cannot Verified 08/22/19 13:51 Remember pollen extracts Allergy Cannot Verified 08/22/19 13:51 Remember ragweed pollen Allergy Cannot Verified 08/22/19 13:51 Remember dust Allergy Cannot Uncoded 08/13/19 15:55 Remember Home Meds: Home Meds Carbamide Peroxide [Debrox] 2 drop OT WEEKLY 12/21/15 [History] Fluticasone Propionate [Flonase] 2 spray NASBOTH DAILY 12/21/15 [History] atorvaSTATin [Lipitor] 40 mg PO BEDTIME 12/21/15 [History] clonazePAM [Clonazepam] 0.5 mg PO TID 12/21/15 [History] Multivitamin [Multivitamins] 1 each PO DAILY 07/19/17 [History] lisinopriL [Lisinopril] 10 mg PO DAILY 08/22/19 [History] Past Medical History HEENT History: Reports: Impaired Vision Cardiovascular History: Reports: High Cholesterol, Hypertension Respiratory History: Reports: None Gastrointestinal History: Reports: GERD Genitourinary History: Reports: None Musculoskeletal History: Reports: None Neurological History: Reports: Other (See Below) Other Neuro History: Mild intellectual disabilites, intermittent explosive disorder, Paraphilia Psychiatric History: Reports: Anxiety, Developmental Delay Endocrine/Metabolic History: Reports: None Hematologic History: Reports: None Immunologic History: Reports: None Oncologic (Cancer) History: Reports: None Dermatologic History: Reports: None - Infectious Disease History Infectious Disease History: Reports: None - Past Surgical History Head Surgeries/Procedures: Reports: None Social & Family History - Family History Family Medical History: Noncontributory - Tobacco Use Smoking Status *Q: Never Smoker - Caffeine Use Caffeine Use: Reports: None - Alcohol Use Alcohol Use History: No - Recreational Drug Use Recreational Drug Use: No - Living Situation & Occupation Living situation: Reports: Other ([employer]) Occupation: Disabled ED ROS ENT - Review of Systems Review Of Systems: Comprehensive ROS is negative, except as noted in HPI. ED EXAM, ENT - Physical Exam Exam: See Below Exam Limited By: No Limitations General Appearance: Alert, WD/WN, No Apparent Distress Eye Exam: Bilateral Eye: Normal Inspection Ears: Normal External Exam, Normal Canal, Hearing Grossly Normal, Normal TMs Nose: No Blood, Other (Mild congestion) Mouth/Throat: Normal Gums, Normal Lips, Normal Teeth, Pharyngeal Erythema, Tonsillar Erythema, Tonsillar Swelling (mild) Head: Atraumatic, Normocephalic Neck: Normal Inspection, Supple, Non-Tender, Full Range of Motion. No: Lymphadenopathy (L), Lymphadenopathy (R) Respiratory/Chest: No Respiratory Distress, Lungs Clear, Normal Breath Sounds, No Accessory Muscle Use, Chest Non-Tender Cardiovascular: Regular Rate, Rhythm GI/Abdominal: Normal Bowel Sounds, Soft, Non-Tender Neurological: Alert, No Motor/Sensory Deficits Psychiatric: Normal Mood Skin: Warm, Dry, Intact Course - Orders/Labs/Meds Orders: Active Orders 24 hr Category Date Time Status CULTURE STREP A CONFIRMATION [RM] Stat Lab 11/07/19 13:25 Results STREP SCRN A RAPID W CULT CONF [] Stat Lab 11/07/19 13:25 Results Labs: Rapid Strep: negative Departure - Departure Time of Disposition: 14:00 Disposition: Home, Self-Care 01 Condition: Good Clinical Impression: Pharyngitis Qualifiers: Pharyngitis/tonsillitis etiology: other specified organisms Qualified Code(s): J02.8 - Acute pharyngitis due to other specified organisms - Discharge Information *PRESCRIPTION DRUG MONITORING PROGRAM REVIEWED*: Not Applicable *COPY OF PRESCRIPTION DRUG MONITORING REPORT IN PATIENT JOSEPH: Not Applicable Instructions: Pharyngitis, [id number], Sore Throat, [id number] Forms: ED Department Discharge Additional Instructions: Rx: Amoxicillin 500mg Follow up in clinic with your primary doctor if not improving in 3 days. Sepsis Event Note - Focused Exam Date Exam was Performed: 11/07/19 Time Exam was Performed: 13:50 - My Orders Last 24 Hours: My Active Orders 11/07/19 13:25 CULTURE STREP A CONFIRMATION [RM] Stat STREP SCRN A RAPID W CULT CONF [RM] Stat - Assessment/Plan Last 24 Hours: My Active Orders 11/07/19 13:25 CULTURE STREP A CONFIRMATION [RM] Stat STREP SCRN A RAPID W CULT CONF [RM] Stat
[2019-11-07 13:54] VITALS: BP 145/65; PULSE 102
== END 2019-11-07 14:10 | disposition home or self-care (01) ==
LOC: DL.ED 13:12
DX: J02.8 Acute pharyngitis due to other specified organisms (principal); E78.00 Pure hypercholesterolemia, unspecified; I10 Essential (primary) hypertension; F41.9 Anxiety disorder, unspecified; Z91.011 Allergy to milk products; Z91.09 Other allergy status, other than to drugs and biological substances; Z79.899 Other long term (current) drug therapy
CPT/HCPCS: 87081; 87430; 99283

== ENCOUNTER 2019-12-14 08:09 | Emergency (ER) | payer MEDICARE, MEDICAID ==
[2019-12-14 08:32] VITALS: BP 116/64; PULSE 109
--- NOTE | 2019-12-14 08:40 | EDM.PDOC ---
ED HPI GENERAL MEDICAL PROBLEM - General Chief Complaint: Neurological Problem Stated Complaint: ambulance Time Seen by Provider: 12/14/19 08:30 Source of Information: Reports: Patient, Old Records, RN, RN Notes Reviewed, Other (Caregiver) History Limitations: Reports: Other (DD/MR) - History of Present Illness INITIAL COMMENTS - FREE TEXT/NARRATIVE: Pt arrives to ER from [facility] by ambulance with report that after breakfast pt was going to use the restroom and suddenly became rigid, unresponsive, and had a brief seizure during which he was unresponsive and incontinent of stool. Caregivers did not notice any injuries. Pt states he did not bite his tongue. Pt states he ate [place] [employer] for breakfast and was feeling good. Pt had emesis x1 following the seizure and was confused for less than 30 minutes. Currently in the ER the pt states he feels fine, denies pain, nausea, or headache. Pt's neurologist has been tapering off his Depakote dose because he has not had any recent seizures. Onset: Today Duration: Resolved Prior to Arrival Location: Reports: Generalized Improves with: Reports: None Worsens with: Reports: None Associated Symptoms: Reports: No Other Symptoms - Related Data Allergies Allergy/AdvReac Type Severity Reaction Status Date / Time Milk Containing Products Allergy Cannot Verified 11/18/19 11:02 Remember mold Allergy Cannot Verified 11/18/19 11:02 Remember pollen extracts Allergy Cannot Verified 11/18/19 11:02 Remember ragweed pollen Allergy Cannot Verified 11/18/19 11:02 Remember dust Allergy Cannot Uncoded 11/18/19 11:02 Remember Home Meds: Home Meds Carbamide Peroxide [Debrox] 2 drop OT WEEKLY 12/21/15 [History] Fluticasone Propionate [Flonase] 2 spray NASBOTH DAILY 12/21/15 [History] atorvaSTATin [Lipitor] 40 mg PO BEDTIME 12/21/15 [History] clonazePAM [Clonazepam] 0.5 mg PO TID 12/21/15 [History] Multivitamin [Multivitamins] 1 each PO DAILY 07/19/17 [History] lisinopriL [Lisinopril] 10 mg PO DAILY 08/22/19 [History] Divalproex Sodium [Depakote Sprinkle] 250 mg PO TID 11/18/19 [History] Venlafaxine HCl [Venlafaxine HCl ER] 17.25 mg PO BID 11/18/19 [History] Past Medical History HEENT History: Reports: Impaired Vision Cardiovascular History: Reports: High Cholesterol, Hypertension Respiratory History: Reports: None Gastrointestinal History: Reports: GERD Genitourinary History: Reports: None Musculoskeletal History: Reports: None Neurological History: Reports: Seizure, Other (See Below) Other Neuro History: Mild intellectual disabilites, intermittent explosive disorder, Paraphilia Psychiatric History: Reports: Anxiety, Developmental Delay, Emotional Problems Endocrine/Metabolic History: Reports: None Hematologic History: Reports: None Immunologic History: Reports: None Oncologic (Cancer) History: Reports: None Dermatologic History: Reports: None - Infectious Disease History Infectious Disease History: Reports: None - Past Surgical History Head Surgeries/Procedures: Reports: None Social & Family History - Family History Family Medical History: Noncontributory - Caffeine Use Caffeine Use: Reports: None - Living Situation & Occupation Living situation: Reports: Other ([employer]) Occupation: Disabled ED ROS GENERAL - Review of Systems Review Of Systems: Comprehensive ROS is negative, except as noted in HPI. - Physical Exam Exam: See Below Exam Limited By: No Limitations General Appearance: Alert, WD/WN, No Apparent Distress Eye Exam: Bilateral Eye: Normal Inspection Ears: Hearing Grossly Normal Nose: Normal Inspection, Normal Mucosa, No Blood Throat/Mouth: Normal Inspection, Normal Lips, Normal Oropharynx, Normal Voice, No Airway Compromise. No: Evidence of Tongue Biting Head Exam: Atraumatic, Normocephalic Neck: Normal Inspection, Non-Tender, Full Range of Motion Respiratory/Chest: No Respiratory Distress, Lungs Clear, Normal Breath Sounds, No Accessory Muscle Use, Chest Non-Tender Cardiovascular: Regular Rate, Rhythm GI/Abdominal: Normal Bowel Sounds, Soft, Non-Tender Neuro Exam (Abbreviated): Alert, Oriented (at baseline), CN II-XII Intact, Normal Cognition, Normal Gait, No Motor/Sensory Deficits Back Exam: Normal Inspection Extremities: Normal Inspection Psychiatric: Normal Mood Skin Exam: Warm, Dry, Intact, Normal Color, No Rash Course - Vital Signs Last Recorded V/S: Last Vital Signs Temp 96.8 F L 12/14/19 08:26 Pulse 109 H 12/14/19 08:26 Resp 16 12/14/19 08:26 BP 116/64 12/14/19 08:26 Pulse Ox 95 12/14/19 08:26 - Orders/Labs/Meds Orders: Active Orders 24 hr Category Date Time Status Peripheral IV Care [RC] . DIRECTED Care 12/14/19 08:35 Active UA RFX NIKO AND CULT IF INDIC [URIN] Stat Lab 12/14/19 08:35 Ordered VALPROIC ACID [REF] Stat Lab 12/14/19 08:31 Received Sodium Chloride 0.9% [Normal Saline] 500 ml Med 12/14/19 09:15 Active IV .BOLUS Sodium Chloride 0.9% [Saline Flush] Med 12/14/19 08:35 Active 10 ml FLUSH ASDIRECTED PRN Peripheral IV Insertion Adult [OM.PC] Stat Oth 12/14/19 08:34 Ordered Seizure Precautions [OM.PC] Routine Oth 12/14/19 08:35 Ordered Medication Orders Sodium Chloride (Normal Saline) 500 mls @ 999 mls/hr IV .BOLUS MILAGROS Sodium Chloride (Saline Flush) 10 ml FLUSH ASDIRECTED PRN PRN Reason: Keep Vein Open Last Admin: 12/14/19 08:52 Dose: 10 ml Labs: Laboratory Tests 12/14/19 12/14/19 Range/Units 08:31 08:31 WBC 13.4 H (5.0-10.0) 10^3/uL RBC 4.40 L (4.6-6.2) 10^6/uL Hgb 13.7 L (14.0-18.0) g/dL Hct 40.1 (40.0-54.0) % MCV 91.1 D (80-100) fL MCH 31.1 (27.0-34.0) pg MCHC 34.2 (33.0-35.0) g/dL Plt Count 276 (150-450) 10^3/uL Neut % (Auto) 67.4 (42.2-75.2) % Lymph % (Auto) 17.6 L (20.5-50.1) % Sharkey % (Auto) 13.5 H (2-8) % Eos % (Auto) 1.1 (1.0-3.0) % Baso % (Auto) 0.4 (0.0-1.0) % Sodium 138 (136-145) mmol/L Potassium 4.2 (3.5-5.1) mmol/L Chloride 102 (98-107) mmol/L Carbon Dioxide 22 (21-32) mmol/L Anion Gap 18.2 H (7-13) mEq/L BUN 22 H (7-18) mg/dL Creatinine 1.69 H (0.70-1.30) mg/dL Est Cr Clr Drug Dosing TNP Estimated GFR (MDRD) 41 BUN/Creatinine Ratio 13.0 (No establ ref range) Glucose 188 H (74-99) mg/dL Calcium 8.5 (8.5-10.1) mg/dL Magnesium 1.9 (1.8-2.4) mg/dL Total Bilirubin 0.4 (0.2-1.0) mg/dL AST 21 (15-37) U/L ALT 31 (16-63) U/L Alkaline Phosphatase 50 (46-116) U/L Total Protein 6.8 (6.4-8.2) g/dL Albumin 3.4 (3.4-5.0) g/dL Globulin 3.4 Albumin/Globulin Ratio 1.0 TSH, Ultra Sensitive 4.57 H (0.36-3.74) uIU/mL Meds: Medications Generic Name Dose Route Start Last Admin Trade Name Freq PRN Reason Stop Dose Admin Sodium Chloride 500 mls @ 999 mls/hr 12/14/19 09:15 Normal Saline IV .BOLUS MILAGROS Sodium Chloride 10 ml 12/14/19 08:35 12/14/19 08:52 Saline Flush FLUSH 10 ml ASDIRECTED PRN Administration Keep Vein Open Discontinued Medications Generic Name Dose Route Start Last Admin Trade Name Freq PRN Reason Stop Dose Admin Divalproex Sodium 125 mg 12/14/19 08:36 12/14/19 08:52 Depakote Sprinkle PO 12/14/19 08:37 125 mg ONETIME ONE Administration Divalproex Sodium 125 mg 12/14/19 08:37 12/14/19 08:52 Depakote Sprinkle PO 12/14/19 08:38 125 mg ONETIME ONE Administration Departure - Departure Time of Disposition: 09:14 Disposition: Home, Self-Care 01 Condition: Good Clinical Impression: Seizure, Dehydration, Hyperglycemia - Discharge Information *PRESCRIPTION DRUG MONITORING PROGRAM REVIEWED*: Not Applicable *COPY OF PRESCRIPTION DRUG MONITORING REPORT IN PATIENT JOSEPH: Not Applicable Instructions: Seizure, Adult, [id number], Dehydration, Elderly, [id number] , Hyperglycemia, [id number] Forms: ED Department Discharge Additional Instructions: Resumed previous dose of Depakote 125mg Two capsules by mouth three times a day. Call Dr. Lozada office Sunday, December 14 to report the seizure and determine whether to continue to Depakote dose reduction or maintain the original dose. Drink plenty of water. Follow up with primary doctor this week for recheck of blood sugar, diabetic screening, and recheck of kidney function. Sepsis Event Note - Evaluation Sepsis Screening Result: No Definite Risk - Focused Exam Vital Signs: Vital Signs Temp Pulse Resp BP Pulse Ox 12/14/19 08:26 96.8 F L 109 H 16 116/64 95 Date Exam was Performed: 12/14/19 Time Exam was Performed: 09:14 - My Orders Last 24 Hours: My Active Orders 12/14/19 08:31 VALPROIC ACID [REF] Stat 12/14/19 08:34 Peripheral IV Insertion Adult [OM.PC] Stat 12/14/19 08:35 Peripheral IV Care [RC] . DIRECTED UA RFX NIKO AND CULT IF INDIC [URIN] Stat Sodium Chloride 0.9% [Saline Flush] 10 ml FLUSH ASDIRECTED PRN Seizure Precautions [OM.PC] Routine 12/14/19 09:15 Sodium Chloride 0.9% [Normal Saline] 500 ml IV .BOLUS - Assessment/Plan Last 24 Hours: My Active Orders 12/14/19 08:31 VALPROIC ACID [REF] Stat 12/14/19 08:34 Peripheral IV Insertion Adult [OM.PC] Stat 12/14/19 08:35 Peripheral IV Care [RC] . DIRECTED UA RFX NIKO AND CULT IF INDIC [URIN] Stat Sodium Chloride 0.9% [Saline Flush] 10 ml FLUSH ASDIRECTED PRN Seizure Precautions [OM.PC] Routine 12/14/19 09:15 Sodium Chloride 0.9% [Normal Saline] 500 ml IV .BOLUS
[2019-12-14] MEDS: Sodium Chloride 0.9% 10 ML Syringe FLUSH PRN (08:52)
[2019-12-14] MEDS: Divalproex Sodium Delayed-Release 125 MG Cap.Sprink PO ONE ×3 (08:52→10:13)
[2019-12-14 09:04] LABS: ANION GAP 18.2 mEq/L (7-13); CHLORIDE,CL 102 mmol/L (98-107); SODIUM,NA 138 mmol/L (136-145)
[2019-12-14] MEDS: Sodium Chloride 0.9% 500 ML IV SCH (09:16)
[2019-12-14] MEDS: Ondansetron 4 MG/2 ML SDV IV ONE ×2 (09:27→10:00)
== END 2019-12-14 10:50 | disposition home or self-care (01) ==
LOC: DL.ED 08:09
DX: R56.9 Unspecified convulsions (principal); E86.0 Dehydration; R73.9 Hyperglycemia, unspecified; E78.00 Pure hypercholesterolemia, unspecified; I10 Essential (primary) hypertension; K21.9 Gastro-esophageal reflux disease without esophagitis; Z79.899 Other long term (current) drug therapy; Z91.09 Other allergy status, other than to drugs and biological substances; Z91.048 Other nonmedicinal substance allergy status; Z91.011 Allergy to milk products
CPT/HCPCS: 36415; 80053; 80164; 81001; 83735; 84443; 85025; 96361; 96374; 96376; 99285; A9270; J2405; J7040

== ENCOUNTER 2020-04-27 20:42 | Emergency (ER) | payer MEDICARE, MEDICAID ==
--- NOTE | 2020-04-27 21:08 | CR ---
PROCEDURE INFORMATION: Exam: XR Left Finger(s) Exam date and time: 04/27/2020 8:43 PM Age: 64 years old Clinical indication: Pain; Finger(s); Left; Additional info: Jammed on door frame TECHNIQUE: Imaging protocol: XR Left fingers. Views: Minimum 2 views. COMPARISON: No relevant prior studies available. FINDINGS: Bones/joints: Dorsal/lateral dislocation of the 5th middle phalanx with respect to the 5th proximal phalanx. Small avulsed bone fragment volar to the head of the 5th proximal phalanx. The donor site is not visualized. Normal bone mineralization. Moderate degenerative change at the 1st CMC joint. Soft tissues: Moderate soft tissue swelling at the 5th finger proximally. No radiopaque foreign body. IMPRESSION: 1. Dorsal/lateral dislocation of the 5th middle phalanx with respect to the 5th proximal phalanx. 2. Small avulsed bone fragment volar to the head of the 5th proximal phalanx. The donor site is not visualized. 3. Moderate soft tissue swelling at the 5th finger proximally.
--- NOTE | 2020-04-27 21:46 | EDM.PDOC ---
ED HPI GENERAL MEDICAL PROBLEM - General Chief Complaint: Upper Extremity Injury/Pain Stated Complaint: BROKE LITTLE FINGER Time Seen by Provider: 04/27/20 20:45 Source of Information: Reports: Other History Limitations: Reports: No Limitations - History of Present Illness INITIAL COMMENTS - FREE TEXT/NARRATIVE: ED with [facility] staff, report patient caught left pinkie finger going around door TEST BORER, Deformity, ice applied. - Related Data Allergies Allergy/AdvReac Type Severity Reaction Status Date / Time Milk Containing Products Allergy Cannot Verified 11/18/19 11:02 Remember mold Allergy Cannot Verified 11/18/19 11:02 Remember pollen extracts Allergy Cannot Verified 11/18/19 11:02 Remember ragweed pollen Allergy Cannot Verified 11/18/19 11:02 Remember dust Allergy Cannot Uncoded 11/18/19 11:02 Remember Home Meds: Home Meds Carbamide Peroxide [Debrox] 2 drop OT WEEKLY 12/21/15 [History] Fluticasone Propionate [Flonase] 2 spray NASBOTH DAILY 12/21/15 [History] atorvaSTATin [Lipitor] 40 mg PO BEDTIME 12/21/15 [History] clonazePAM [Clonazepam] 0.5 mg PO TID 12/21/15 [History] Multivitamin [Multivitamins] 1 each PO DAILY 07/19/17 [History] lisinopriL [Lisinopril] 10 mg PO DAILY 08/22/19 [History] Divalproex Sodium [Depakote Sprinkle] 250 mg PO TID 11/18/19 [History] Venlafaxine HCl [Venlafaxine HCl ER] 17.25 mg PO BID 11/18/19 [History] Past Medical History HEENT History: Reports: Impaired Vision Cardiovascular History: Reports: High Cholesterol, Hypertension Respiratory History: Reports: None Gastrointestinal History: Reports: GERD Genitourinary History: Reports: None Musculoskeletal History: Reports: None Neurological History: Reports: Seizure, Other (See Below) Other Neuro History: Mild intellectual disabilites, intermittent explosive disorder, Paraphilia Psychiatric History: Reports: Anxiety, Developmental Delay, Emotional Problems Endocrine/Metabolic History: Reports: None Hematologic History: Reports: None Immunologic History: Reports: None Oncologic (Cancer) History: Reports: None Dermatologic History: Reports: None - Infectious Disease History Infectious Disease History: Reports: None - Past Surgical History Head Surgeries/Procedures: Reports: None Social & Family History - Family History Family Medical History: Noncontributory - Caffeine Use Caffeine Use: Reports: None - Living Situation & Occupation Living situation: Reports: Other ([employer]) Occupation: Disabled Review of Systems - Review of Systems Review Of Systems: Comprehensive ROS is negative, except as noted in HPI. ED EXAM, GENERAL - Physical Exam Exam: See Below Exam Limited By: No Limitations General Appearance: Alert, No Apparent Distress Eye Exam: Bilateral Eye: EOMI Ears: Normal External Exam, Hearing Grossly Normal Nose: Normal Inspection Throat/Mouth: Normal Inspection Respiratory/Chest: No Respiratory Distress, Normal Breath Sounds Cardiovascular: Normal Peripheral Pulses, Regular Rate, Rhythm Extremities: Other (obvious deformity MIP left 5th finger lateral deviation mild swelling) Neurological: Alert Psychiatric: Normal Affect Skin Exam: Warm, Dry, Intact ED TRAUMA EXTREMITY PROCEDURES - Joint Reduction Left Fingers Technique: Traction/Counter Traction Number of Attempts: 1 Post-Reduction Imaging: Completely Reduced, Fracture Seen (a small avulsed bone fragement volar to head of 5th proximal phalanyx) Joint Reduction Complications: No Progress/Comments: metal foam splint applied Course - Vital Signs Last Recorded V/S: Last Vital Signs Temp 98.1 F 04/27/20 19:15 Pulse 66 04/27/20 19:15 Resp 16 04/27/20 19:15 BP 141/78 H 04/27/20 19:15 Pulse Ox 99 04/27/20 19:15 Departure - Departure Time of Disposition: 21:42 Disposition: DC/Tfer to [facility] Condition: Good Clinical Impression: Dislocation of fifth finger, metacarpal joint, proximal, left, closed - Discharge Information *PRESCRIPTION DRUG MONITORING PROGRAM REVIEWED*: No *COPY OF PRESCRIPTION DRUG MONITORING REPORT IN PATIENT JOSEPH: No Instructions: Finger or Thumb Dislocation, [id number] Referrals: PCP,None [Primary Care Provider] - Forms: ED Department Discharge, ED Return to Work/School Form Additional Instructions: splint to 5th finger, may remigio tape 3rd, 4th and 5th finger if not tolerating splint clinic recheck one week ice to finger tonight if will tolerate tylenol 500mg every 4 hours as needed for pain or per previous patient order Sepsis Event Note (ED) - Focused Exam Vital Signs: Vital Signs Temp Pulse Resp BP Pulse Ox 04/27/20 19:15 98.1 F 66 16 141/78 H 99
--- NOTE | 2020-04-27 22:16 | CR ---
PROCEDURE INFORMATION: Exam: XR Left Finger(s) Exam date and time: 04/27/2020 9:35 PM Age: 64 years old Clinical indication: Other: Post reduction TECHNIQUE: Imaging protocol: XR Left fingers. Views: Minimum 2 views. COMPARISON: CR Fingers Fifth Digit Lt F4 04/27/2020 8:43 PM FINDINGS: Bones/joints: There has been interval closed reduction of the dislocation at the 5th PIP joint. A small avulsed bone fragment volar to the head of the 5th words proximal phalanx is redemonstrated, a donor site is not visualized. Normal bone mineralization. Moderate degenerative change at the 1st carpometacarpal joint. Soft tissues: Mild soft tissue swelling at the proximal 5th finger. Findings are stable. No radiopaque foreign body. IMPRESSION: 1. A small avulsed bone fragment volar to the head of the 5th words proximal phalanx is redemonstrated, a donor site is not visualized. 2. There has been interval closed reduction of the dislocation at the 5th PIP joint. 3. Mild soft tissue swelling at the proximal 5th finger. Findings are stable. 4. Incidental/nonacute findings are listed in the report.
[2020-04-28 03:23] VITALS: BP 141/78; PULSE 66
== END 2020-04-27 21:46 ==
LOC: DL.ED 20:42
DX: S63.267A Dislocation of metacarpophalangeal joint of left little finger, initial encounter (principal); I10 Essential (primary) hypertension; E78.00 Pure hypercholesterolemia, unspecified; F41.9 Anxiety disorder, unspecified; Z91.048 Other nonmedicinal substance allergy status; Z91.011 Allergy to milk products; Z79.899 Other long term (current) drug therapy; W22.8XXA Striking against or struck by other objects, initial encounter
CPT/HCPCS: 26700; 73140-F4; 99283-25

== ENCOUNTER 2020-06-17 06:50 | Day surgery (SDC) | payer MEDICARE, MEDICAID ==
[~2020-06-17 06:50] MED LIST changes: +Midazolam 1 MG/ML 2 ML SDV ONE; -Ondansetron 4 MG/2 ML SDV IVPUSH ONE; -cefTRIAXone 1 GM in Sodium Chloride 0.9% 50 ML IV ONE; +fentaNYL 100 MCG/2 ML SDV ONE
[2020-06-17] MEDS ORDERED: fentaNYL 100 MCG/2 ML SDV IV ONE ×5 (06:51→08:20)
[2020-06-17] MEDS ORDERED: Midazolam 1 MG/ML 2 ML SDV IV ONE ×9 (06:51→08:29)
[2020-06-17] MEDS ORDERED: Dextrose 5%-0.45% NaCl 1,000 ML IV SCH (07:30)
[2020-06-17] MEDS ORDERED: Midazolam 1 MG/ML 2 ML SDV ONE (08:46)
[2020-06-17 10:12] VITALS: BP 101/68; PULSE 95
--- NOTE | 2020-06-17 11:59 | OR ---
DATE: 06/17/2020 INTRODUCTION: This 64-year-old male has been referred for rectal changes and fixation. [facility] [place] [facility] and they are concerned he keeps trying to put foreign bodies transanally into the rectum. POSTOPERATIVE DIAGNOSIS: Cecal mass, most likely adenocarcinoma. PROCEDURE: Total colonoscopy with biopsy of cecal mass. ANESTHESIA: Conscious sedation with IV Versed and fentanyl. SPECIMEN: Cecal mass biopsy. 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 DESCRIPTION OF PROCEDURE: After adequate preparation, a colonoscope was inserted into the rectum. This was somewhat difficult to pass through the sigmoid area and splenic flexure. He had a fair bowel prep and preoperatively had received an enema. He had some retained fluid. I was able to, however, finally advance the scope all the way over to the cecum, and at the cecal level, there was a large mass. Multiple biopsies of this were taken. The bowel prep around the cecal mass was easily cleared, so I could get a good vision of this. After biopsy, the cecal area was tattooed with [place] ink. Along the path of the colon, there probably are a few other little small diminutive polyps. I did not spend time removing these. Air was suctioned from the colon and the scope removed. [facility] /[id number]
== END 2020-06-17 09:44 ==
LOC: DL.ENDO 06:50
PROVIDERS: ATTEND Surgery
DX: D12.0 Benign neoplasm of cecum (principal); R56.9 Unspecified convulsions; Z01.812 Encounter for preprocedural laboratory examination; Z20.828 Contact with and (suspected) exposure to other viral communicable diseases; Z91.011 Allergy to milk products; Z91.048 Other nonmedicinal substance allergy status
CPT/HCPCS: J2250; J3010; J7042; U0002

== ENCOUNTER 2020-08-28 15:16 | Emergency (ER) | payer MEDICARE, MEDICAID ==
--- NOTE | 2020-08-28 15:26 | EDM.PDOC ---
ED HPI GENERAL MEDICAL PROBLEM - General Stated Complaint: VOMITING Time Seen by Provider: 08/28/20 15:25 Source of Information: Reports: Patient History Limitations: Reports: No Limitations - History of Present Illness INITIAL COMMENTS - FREE TEXT/NARRATIVE: Right colectomy on Sunday, Discharged , Vomiting since last evening. 4 times today. Not drinking. Urine looking darker. Abdomen looking bloated. Larger than usual. No reported fever - Related Data Allergies Allergy/AdvReac Type Severity Reaction Status Date / Time Milk Containing Products Allergy Cannot Verified 08/28/20 15:37 Remember mold Allergy Cannot Verified 08/28/20 15:37 Remember pollen extracts Allergy Cannot Verified 08/28/20 15:37 Remember ragweed pollen Allergy Cannot Verified 08/28/20 15:37 Remember dust Allergy Cannot Uncoded 08/28/20 15:37 Remember Home Meds: Home Meds Carbamide Peroxide [Debrox] 2 drop OT WEEKLY 12/21/15 [History] Fluticasone Propionate [Flonase] 2 spray NASBOTH DAILY 12/21/15 [History] atorvaSTATin [Lipitor] 40 mg PO BEDTIME 12/21/15 [History] clonazePAM [Clonazepam] 0.5 mg PO TID 12/21/15 [History] Multivitamin [Multivitamins] 1 each PO DAILY 07/19/17 [History] lisinopriL [Lisinopril] 10 mg PO DAILY 08/22/19 [History] Venlafaxine HCl [Venlafaxine HCl ER] 17.25 mg PO BID 11/18/19 [History] Cholecalciferol (Vitamin D3) [Vitamin D3] 1,000 unit PO DAILY 06/15/20 [History] Docusate Calcium 240 mg PO DAILY 06/15/20 [History] Omeprazole 40 mg PO .WEVENINGMEDS 06/15/20 [History] Ondansetron [Ondansetron ODT] 4 mg PO Q6H PRN 06/15/20 [History] busPIRone HCl [Buspirone HCl] 7.5 mg PO BID 06/15/20 [History] lamoTRIgine [Lamotrigine] 100 mg PO BID 06/15/20 [History] Tamsulosin HCl 0.4 mg PO DAILY 08/28/20 [History] oxyCODONE 5 mg PO Q4H PRN 08/28/20 [History] Past Medical History HEENT History: Reports: Impaired Vision Cardiovascular History: Reports: High Cholesterol, Hypertension Respiratory History: Reports: None Gastrointestinal History: Reports: GERD Genitourinary History: Reports: None Musculoskeletal History: Reports: None Neurological History: Reports: Seizure, Other (See Below) Other Neuro History: Mild intellectual disabilites, intermittent explosive disorder, Paraphilia Psychiatric History: Reports: Anxiety, Developmental Delay, Emotional Problems Endocrine/Metabolic History: Reports: None Hematologic History: Reports: None Immunologic History: Reports: None Oncologic (Cancer) History: Reports: None Dermatologic History: Reports: None - Infectious Disease History Infectious Disease History: Reports: None - Past Surgical History Head Surgeries/Procedures: Reports: None HEENT Surgical History: Reports: None Cardiovascular Surgical History: Reports: None GI Surgical History: Reports: None Male Surgical History: Reports: Circumcision Musculoskeletal Surgical History: Reports: None Social & Family History - Family History Family Medical History: No Pertinent Family History - Caffeine Use Caffeine Use: Reports: None - Living Situation & Occupation Living situation: Reports: Other ([employer]) Occupation: Disabled ED ROS GENERAL - Review of Systems Review Of Systems: Comprehensive ROS is negative, except as noted in HPI. ED EXAM, GENERAL - Physical Exam Exam: See Below Exam Limited By: No Limitations General Appearance: Alert, Mild Distress Ears: Normal External Exam, Hearing Grossly Normal Nose: Normal Inspection Throat/Mouth: Normal Inspection Head: Atraumatic, Normocephalic Neck: Normal Inspection, Supple, Full Range of Motion Cardiovascular: Normal Peripheral Pulses, Regular Rate, Rhythm, No Edema, No JVD GI/Abdominal: Distended, Guarding, Abnormal Bowel Sounds. No: Normal Bowel Sounds Neurological: Alert. No: Normal Cognition Psychiatric: Anxious Skin Exam: Warm, Dry, Other (Surgical incision RLQ) Course - Vital Signs Last Recorded V/S: Last Vital Signs Temp 97.0 F 08/28/20 15:39 Pulse 107 H 08/28/20 15:39 Resp 18 08/28/20 15:39 BP 113/70 08/28/20 15:39 Pulse Ox 98 08/28/20 15:39 - Orders/Labs/Meds Orders: Active Orders 24 hr Category Date Time Status Abdomen 1V Upright [CR] Stat Exams 08/28/20 16:50 Ordered Chest 1V Frontal [CR] Stat Exams 08/28/20 16:50 Ordered CULTURE BLOOD [BC] Stat Lab 08/28/20 15:34 Received NG [Nasogastric Orogastric Tube Insertion] [OM.PC] Oth 08/28/20 16:49 Ordered Routine Labs: Laboratory Tests 08/28/20 08/28/20 08/28/20 Range/Units 15:34 15:34 15:34 WBC 6.1 (5.0-10.0) 10^3/uL RBC 3.88 L (4.6-6.2) 10^6/uL Hgb 12.1 L D (14.0-18.0) g/dL Hct 35.3 L (40.0-54.0) % MCV 91.0 (80-100) fL MCH 31.2 (27.0-34.0) pg MCHC 34.3 (33.0-35.0) g/dL Plt Count 366 D (150-450) 10^3/uL Neut % (Auto) 76.4 H (42.2-75.2) % Lymph % (Auto) 9.1 L (20.5-50.1) % Jew[place] % (Auto) 14.3 H (2-8) % Eos % (Auto) 0.0 L (1.0-3.0) % Baso % (Auto) 0.2 (0.0-1.0) % Sodium 133 L (136-145) mmol/L Potassium 5.2 H (3.5-5.1) mmol/L Chloride 95 L (98-107) mmol/L Carbon Dioxide 28 (21-32) mmol/L Anion Gap 15.2 H (7-13) mEq/L BUN 36 H (7-18) mg/dL Creatinine 1.92 H (0.70-1.30) mg/dL Est Cr Clr Drug Dosing 32.12 mL/min Estimated GFR (MDRD) 35 BUN/Creatinine Ratio 18.8 (No establ ref range) Glucose 139 H (74-99) mg/dL Lactic Acid 2.4 H* (0.4-2.0) mmol/L Calcium 9.1 (8.5-10.1) mg/dL Magnesium 2.8 H (1.8-2.4) mg/dL Total Bilirubin 0.4 (0.2-1.0) mg/dL AST 45 H (15-37) U/L ALT 37 (16-63) U/L Alkaline Phosphatase 75 (46-116) U/L Total Protein 6.6 (6.4-8.2) g/dL Albumin 2.9 L (3.4-5.0) g/dL Globulin 3.7 Albumin/Globulin Ratio 0.78 Amylase 18 L (25-115) U/L Lipase 87 (73-393) U/L Urine Color (YELLOW) Urine Appearance (CLEAR) Urine pH (5.0-9.0) Ur Specific [place] (1.005-1.030) Urine Protein (NEGATIVE) Urine Glucose (UA) (NEGATIVE) Urine Ketones (NEGATIVE) Urine Occult Blood (NEGATIVE) Urine Nitrite (NEGATIVE) Urine Bilirubin (NEGATIVE) Urine Urobilinogen (0.2-1.0) mg/dL Ur Leukocyte Esterase (NEGATIVE) U Hyaline Cast (Auto) Urine RBC /HPF Urine WBC (0-5/HPF) /HPF Ur Epithelial Cells (NOT SEEN) /HPF Calcium Oxalate Crystal (NOT SEEN) /HPF Amorphous Sediment (NOT SEEN) /HPF Urine Bacteria (0-FEW/HPF) /HPF Fine Granular Casts (NOT SEEN) /LPF Urine Mucus (NOT SEEN) /LPF 08/28/20 Range/Units 15:58 WBC (5.0-10.0) 10^3/uL RBC (4.6-6.2) 10^6/uL Hgb (14.0-18.0) g/dL Hct (40.0-54.0) % MCV (80-100) fL MCH (27.0-34.0) pg MCHC (33.0-35.0) g/dL Plt Count (150-450) 10^3/uL Neut % (Auto) (42.2-75.2) % Lymph % (Auto) (20.5-50.1) % [place] % (Auto) (2-8) % Eos % (Auto) (1.0-3.0) % Baso % (Auto) (0.0-1.0) % Sodium (136-145) mmol/L Potassium (3.5-5.1) mmol/L Chloride (98-107) mmol/L Carbon Dioxide (21-32) mmol/L Anion Gap (7-13) mEq/L BUN (7-18) mg/dL Creatinine (0.70-1.30) mg/dL Est Cr Clr Drug Dosing mL/min Estimated GFR (MDRD) BUN/Creatinine Ratio (No establ ref range) Glucose (74-99) mg/dL Lactic Acid (0.4-2.0) mmol/L Calcium (8.5-10.1) mg/dL Magnesium (1.8-2.4) mg/dL Total Bilirubin (0.2-1.0) mg/dL AST (15-37) U/L ALT (16-63) U/L Alkaline Phosphatase (46-116) U/L Total Protein (6.4-8.2) g/dL Albumin (3.4-5.0) g/dL Globulin Albumin/Globulin Ratio Amylase (25-115) U/L Lipase (73-393) U/L Urine Color Yellow (YELLOW) Urine Appearance Slightly cloudy (CLEAR) Urine pH 5.5 (5.0-9.0) Ur Specific [place] >= 1.030 (1.005-1.030) Urine Protein 100 H (NEGATIVE) Urine Glucose (UA) Negative (NEGATIVE) Urine Ketones Negative (NEGATIVE) Urine Occult Blood Moderate H (NEGATIVE) Urine Nitrite Negative (NEGATIVE) Urine Bilirubin Small H (NEGATIVE) Urine Urobilinogen 0.2 (0.2-1.0) mg/dL Ur Leukocyte Esterase Negative (NEGATIVE) U Hyaline Cast (Auto) Few Urine RBC 30-40 H /HPF Urine WBC 0-5 (0-5/HPF) /HPF Ur Epithelial Cells Few (NOT SEEN) /HPF Calcium Oxalate Crystal Few H (NOT SEEN) /HPF Amorphous Sediment Few (NOT SEEN) /HPF Urine Bacteria Rare (0-FEW/HPF) /HPF Fine Granular Casts Occasional H (NOT SEEN) /LPF Urine Mucus Few H (NOT SEEN) /LPF Meds: Medications Discontinued Medications Generic Name Dose Route Start Last Admin Trade Name Heath PRN Reason Stop Dose Admin Fentanyl 50 mcg 08/28/20 17:20 08/28/20 17:41 Sublimaze IVPUSH 08/28/20 17:21 50 mcg ONETIME ONE Administration Ondansetron HCl 4 mg 08/28/20 17:20 08/28/20 17:41 Zofran IVPUSH 08/28/20 17:21 4 mg ONETIME ONE Administration - Re-Assessments/Exams Free Text/Narrative Re-Assessment/Exam: 08/28[facility]20 [facility] [facility] NG attempted Patient unable to tolerate procedure. Departure - Departure Time of Disposition: 17:28 Disposition: DC/Tfer to Acute Hospital 02 Condition: Good Clinical Impression: Ileus, Status post right hemicolectomy Vomiting Qualifiers: Vomiting type: unspecified Vomiting Intractability: non-intractable Nausea presence: with nausea Qualified Code(s): R11.2 - Nausea with vomiting, unspecified - Discharge Information *PRESCRIPTION DRUG MONITORING PROGRAM REVIEWED*: No *COPY OF PRESCRIPTION DRUG MONITORING REPORT IN PATIENT JOSEPH: No Forms: ED Department Discharge Sepsis Event Note (ED) - Focused Exam Vital Signs: Vital Signs Temp Pulse Resp BP Pulse Ox 08/28/20 15:39 97.0 F 107 H 18 113/70 98 - My Orders Last 24 Hours: My Active Orders 08/28/20 15:34 CULTURE BLOOD [BC] Stat 08/28/20 16:49 NG [Nasogastric Orogastric Tube Insertion] [OM.PC] Routine 08/28/20 16:50 Abdomen 1V Upright [CR] Stat Chest 1V Frontal [CR] Stat - Assessment/Plan Last 24 Hours: My Active Orders 08/28/20 15:34 CULTURE BLOOD [BC] Stat 08/28/20 16:49 NG [Nasogastric Orogastric Tube Insertion] [OM.PC] Routine 08/28/20 16:50 Abdomen 1V Upright [CR] Stat Chest 1V Frontal [CR] Stat
[2020-08-28 15:44] VITALS: BP 113/70; PULSE 107
[2020-08-28 15:59] LABS: ANION GAP 15.2 mEq/L (7-13)
--- NOTE | 2020-08-28 16:48 | CT ---
PROCEDURE INFORMATION: Exam: CT Abdomen And Pelvis Without Contrast Exam date and time: 08/28/2020 4:20 PM Age: 64 years old Clinical indication: Other: Distention, abd surg 08/23/20, previous covid; Prior surgery; Surgery date: 3-7 days post-operative; Additional info: Abd distended, recent colectomy 08/23 TECHNIQUE: Imaging protocol: Computed tomography of the abdomen and pelvis without contrast. Radiation optimization: All CT scans at this facility use at least one of these dose optimization techniques: automated exposure control; mA and/or kV adjustment per patient size (includes targeted exams where dose is matched to clinical indication); or iterative reconstruction. COMPARISON: CT Chest Abdomen Pelvis w Cont 07/19/2020 8:50 AM FINDINGS: 64-year-old male presenting with abdominal distention. The patient has a history of surgery on 08/23/2020 to remove a cecal mass. A CT of the abdomen and pelvis without intravenous contrast was performed for further evaluation. There are diffusely dilated loops of small bowel seen throughout the abdomen with a gradual area of transition appreciated at the distal ileum, best seen on images 24-52 series 3. This is most compatible with severe ileus. Small bowel loops measure up to 5.4 cm. The stomach is also significantly distended. There is no significant bowel wall thickening appreciated at this time. There has also been a partial right hemicolectomy to remove a cecal mass. There are no acute complications appreciated at the level of the enterocolonic anastomosis in the right hemiabdomen. Specifically, there is no evidence for associated fluid collections. There is a small area of mesenteric fat necrosis in the right lower quadrant on image 101 series 2 measuring 3.3 cm. Diffuse low volume abdominopelvic ascites are present. No fluid collections. There is residual trace postsurgical pneumoperitoneum, however no significant or concerning pneumoperitoneum is appreciated at this time. The liver, gallbladder, biliary system, pancreas, spleen, adrenal glands, kidneys, and ureters are unremarkable. The urinary bladder is under distended due to an intraluminal [place] and therefore difficult to evaluate. The prostate gland is mildly enlarged. Mild body wall edema is noted. Bilateral basal lung atelectasis is appreciated. No acute skeletal abnormality or aggressive osseous lesions. Moderate multilevel degenerative changes of the spine are present. IMPRESSION: Severe ileus with expected postsurgical changes, as detailed above. No evidence of bowel perforation is appreciated at this time.
[2020-08-28] MEDS ORDERED: fentaNYL 100 MCG/2 ML SDV IVPUSH ONE (17:20)
[2020-08-28] MEDS ORDERED: Ondansetron 4 MG/2 ML SDV IVPUSH ONE (17:20)
== END 2020-08-28 17:49 ==
LOC: DL.ED 15:16
DX: K91.30 Postprocedural intestinal obstruction, unspecified as to partial versus complete (principal); K91.0 Vomiting following gastrointestinal surgery; E78.00 Pure hypercholesterolemia, unspecified; I10 Essential (primary) hypertension; K21.9 Gastro-esophageal reflux disease without esophagitis; R56.9 Unspecified convulsions; Z91.011 Allergy to milk products; Z91.048 Other nonmedicinal substance allergy status; Z79.899 Other long term (current) drug therapy
CPT/HCPCS: 36415; 43752; 74176; 80053; 81001; 82150; 83605; 83690; 83735; 85025; 87040; 96374; 96375; 99285; J2405; J3010; 99284

== ENCOUNTER 2021-09-28 20:18 | Emergency (ER) | payer MEDICARE, MEDICAID ==
[2021-09-28] MEDS ORDERED: ClonazePAM 0.5 MG Tab PO ONE (20:19)
[2021-09-28] MEDS ORDERED: LORazepam 2 MG/ML SDV IM PRN (20:31)
[2021-09-28] MEDS ORDERED: levETIRAcetam in NaCl (iso-os) 500 MG in Premix Bag 1 BAG IV ONE ×2 (20:49)
[2021-09-28] MEDS ORDERED: LORazepam 2 MG/ML SDV IVPUSH PRN (20:50)
[2021-09-28] MEDS ORDERED: Famotidine 20 MG/2 ML SDV IVPUSH ONE (20:52)
[2021-09-28 21:21] LABS: ANION GAP 18.7 mEq/L (7-13); CHLORIDE,CL 103 mmol/L (98-107); SODIUM,NA 140 mmol/L (136-145)
[2021-09-28] MEDS ORDERED: ClonazePAM 0.5 MG Tab ONE (21:45)
[2021-09-28] MEDS ORDERED: Carvedilol 6.25 MG Tab PO ONE (22:28)
[2021-09-28] MEDS ORDERED: lamoTRIgine 100 MG Tab PO ONE (22:28)
[2021-09-28 23:09] VITALS: BP 135/80; PULSE 79
== END 2021-09-28 23:20 | disposition other institution (70) ==
LOC: DL.ED 20:18
DX: G40.909 Epilepsy, unspecified, not intractable, without status epilepticus (principal); F13.239 Sedative, hypnotic or anxiolytic dependence with withdrawal, unspecified; F41.9 Anxiety disorder, unspecified; F84.9 Pervasive developmental disorder, unspecified; E78.00 Pure hypercholesterolemia, unspecified; I10 Essential (primary) hypertension; K21.9 Gastro-esophageal reflux disease without esophagitis; Z91.011 Allergy to milk products; Z91.048 Other nonmedicinal substance allergy status; Z88.8 Allergy status to other drugs, medicaments and biological substances
CPT/HCPCS: 36415; 70450; 71045; 80053; 80175; 80177; 82271; 85025; 96374; 96375; 99284; 99285-25; A9270-GY; J1953; J3490

== ENCOUNTER 2022-09-15 07:06 | Emergency (ER) | payer MEDICARE, MEDICAID ==
[2022-09-15] MEDS ORDERED: Sodium Chloride 0.9% 10 ML Syringe FLUSH PRN (07:16)
[2022-09-15] MEDS ORDERED: Aspirin 81 MG Tab.Chew PO ONE (07:31)
[2022-09-15] MEDS ORDERED: LORazepam 2 MG/ML SDV IVPUSH ONE (07:33)
[2022-09-15 07:46] LABS: PTT,PARTIAL THROMBOPLSTIN TIME 26.3 SEC (22.0-34.0)
[2022-09-15 07:57] LABS: ANION GAP 13.8 mEq/L (7-13); CHLORIDE,CL 105 mmol/L (98-107); SODIUM,NA 141 mmol/L (136-145)
[2022-09-15 07:58] LABS: ESTIMATED GFR 25 mL/min (>=60)
[2022-09-15 08:24] VITALS: BP 145/80; PULSE 80
== END 2022-09-15 08:14 ==
LOC: DL.ED 07:06
DX: I63.532 Cerebral infarction due to unspecified occlusion or stenosis of left posterior cerebral artery (principal); E78.00 Pure hypercholesterolemia, unspecified; I10 Essential (primary) hypertension; K21.9 Gastro-esophageal reflux disease without esophagitis; Z91.011 Allergy to milk products; Z88.8 Allergy status to other drugs, medicaments and biological substances; Z91.048 Other nonmedicinal substance allergy status; Z79.899 Other long term (current) drug therapy
CPT/HCPCS: 36415; 70450; 80053; 83605; 83735; 84484; 85025; 85610; 85730; 93005; 93010; 96374; 99285; 99285-25; A9270-GY; J2060; J3490

== ENCOUNTER 2022-10-09 12:03 | Emergency (ER) | payer MEDICARE, MEDICAID ==
[2022-10-09 11:30] VITALS: BP 141/83; PULSE 84
[2022-10-09 12:08] LABS: PTT,PARTIAL THROMBOPLSTIN TIME 25.6 SEC (22.0-34.0)
[2022-10-09 12:09] LABS: ANION GAP 14.9 mEq/L (7-13)
[2022-10-09] MEDS ORDERED: Sodium Chloride 0.9% 1,000 ML IV ONE (12:23)
[2022-10-09] MEDS ORDERED: Ciprofloxacin in D5W 400 MG in Premix Bag 1 BAG IV ONE ×2 (12:26)
[2022-10-09] MEDS ORDERED: cefTRIAXone 2 GM Vial IM ONE (12:57)
== END 2022-10-09 13:54 | disposition home or self-care (01) ==
LOC: DL.ED 12:03
DX: N39.0 Urinary tract infection, site not specified (principal); R74.8 Abnormal levels of other serum enzymes; E78.00 Pure hypercholesterolemia, unspecified; I10 Essential (primary) hypertension; K21.9 Gastro-esophageal reflux disease without esophagitis; Z79.899 Other long term (current) drug therapy; Z88.6 Allergy status to analgesic agent; Z91.011 Allergy to milk products; Z91.048 Other nonmedicinal substance allergy status
CPT/HCPCS: 36415; 80053; 81001; 83735; 85025; 85610; 85730; 87086; 96372; 96374; 99285; J0696; J0744; J7030; 99284

== ENCOUNTER 2022-10-18 22:54 | Emergency (ER) | payer MEDICARE, MEDICAID ==
[2022-10-18] MEDS ORDERED: Succinylcholine 200 MG/10 ML MDV IV ONE (22:55)
[2022-10-18] MEDS ORDERED: Etomidate 2 MG/ML 20 ML SDV IVPUSH ONE (22:55)
[2022-10-18] MEDS ORDERED: Sodium Chloride 0.9% 10 ML Syringe FLUSH PRN (23:03)
[2022-10-18] MEDS ORDERED: Sodium Chloride 0.9% 1,000 ML IV ONE ×2 (23:41→23:50)
[2022-10-18 23:44] LABS: ANION GAP 12.8 mEq/L (7-13)
[2022-10-18 23:46] VITALS: BP 156/100; PULSE 80
[2022-10-18] MEDS ORDERED: Piperacillin/Tazobactam 4.5 GM in Sodium Chloride 0.9% 100 ML IV ONE (23:50)
[2022-10-18] MEDS ORDERED: Piperacillin/Tazobactam 4.5 GM Vial ONE (23:58)
[2022-10-19 00:10] LABS: CORONAVIRUS COVID-19 NAA NEGATIVE (NEGATIVE); RESPIRATORY SYNCYTIAL VIR NAA NEGATIVE (NEGATIVE)
[2022-10-19 00:22] LABS: O2 DELIVERY DEVICE NASAL CANNULA; PH,VENOUS 7.27 (7.31-7.41)
[2022-10-19 00:23] LABS: PCO2 VENOUS 63 mmHg (41-51); PO2 VENOUS 24 mmHg (35-42)
[2022-10-19 00:24] LABS: BASE EXCESS VENOUS 2 mmol/l ((-2)-(+3)); BICARBONATE,VENOUS 29 mmol/l (19-25); O2 SATURATION VENOUS 33 % (60-80)
[2022-10-19] MEDS ORDERED: Sulfamethoxazole/Trimethoprim 800-160 MG Tab PO ONE (01:09)
[2022-10-19] MEDS ORDERED: Polymyxin B/Trimethoprim 10 ML Bottle EYEBOTH ONE (01:10)
[2022-10-19 01:42] LABS: O2 DELIVERY DEVICE NASAL CANNULA; PH,VENOUS 7.27 (7.31-7.41)
[2022-10-19 01:43] LABS: BASE EXCESS VENOUS -3 mmol/l ((-2)-(+3)); BICARBONATE,VENOUS 24 mmol/l (19-25); O2 SATURATION VENOUS 47 % (60-80); PCO2 VENOUS 54 mmHg (41-51); PO2 VENOUS 30 mmHg (35-42)
[2022-10-19] MEDS ORDERED: Rocuronium 100 MG/10 ML MDV IV ONE (02:00)
[2022-10-19] MEDS ORDERED: fentaNYL 100 MCG/2 ML SDV ONE (02:21)
[2022-10-19] MEDS ORDERED: Midazolam 50 MG in Sodium Chloride 0.9% 40 ML IV SCH (04:00)
[2022-10-19] MEDS ORDERED: Sodium Chloride 0.9% 1,000 ML IV ONE (04:10)
== END 2022-10-19 03:05 ==
LOC: DL.ED 22:54
DX: J18.9 Pneumonia, unspecified organism (principal); J96.01 Acute respiratory failure with hypoxia; E78.00 Pure hypercholesterolemia, unspecified; I10 Essential (primary) hypertension; K21.9 Gastro-esophageal reflux disease without esophagitis; Z86.73 Personal history of transient ischemic attack (TIA), and cerebral infarction without residual deficits; Z91.011 Allergy to milk products; Z91.048 Other nonmedicinal substance allergy status; Z79.899 Other long term (current) drug therapy; Z20.822 Contact with and (suspected) exposure to COVID-19
CPT/HCPCS: 0241U; 31500; 36415; 71045; 80053; 81001; 82803; 83605; 83735; 84145; 85025; 86140; 87040; 93005; 93010; 96365; 96366; 96367; 96375; 99285; C1758; J0330; J2250; J2543; J3010; J3370; J3490; J7030; J7050

== ENCOUNTER 2022-11-03 15:46 | Emergency (ER) | payer MEDICARE, MEDICAID ==
[2022-11-03 16:01] VITALS: PULSE 87
[2022-11-03 16:26] VITALS: BP 117/71
== END 2022-11-03 16:18 | disposition home or self-care (01) ==
LOC: DL.ED 15:46
DX: Z00.00 Encounter for general adult medical examination without abnormal findings (principal); E78.00 Pure hypercholesterolemia, unspecified; I10 Essential (primary) hypertension; K21.9 Gastro-esophageal reflux disease without esophagitis; Z91.011 Allergy to milk products; Z88.8 Allergy status to other drugs, medicaments and biological substances; Z79.899 Other long term (current) drug therapy
CPT/HCPCS: 99283

== ENCOUNTER 2022-12-13 11:14 | Emergency (ER) | payer MEDICARE, MEDICAID ==
[2022-12-13 11:30] VITALS: BP 100/49; PULSE 70
[2022-12-13] MEDS ORDERED: Sodium Chloride 0.9% 10 ML Syringe FLUSH PRN (11:43)
[2022-12-13] MEDS ORDERED: Sodium Chloride 0.9% 1,000 ML IV ONE (11:49)
[2022-12-13 11:58] LABS: APPEARANCE,URINE CLEAR (CLEAR); BILIRUBIN,URINE NEGATIVE (NEGATIVE); COLOR,URINE YELLOW (YELLOW); GLUCOSE,URINE NEGATIVE (NEGATIVE); KETONES,URINE NEGATIVE (NEGATIVE); LEUKOCYTE ESTERASE,URINE NEGATIVE (NEGATIVE); NITRITE,URINE NEGATIVE (NEGATIVE); OCCULT BLOOD,URINE NEGATIVE (NEGATIVE); PH,URINE 5.5 (5.0-9.0); PROTEIN,URINE NEGATIVE (NEGATIVE); UROBILINOGEN,URINE 0.2 mg/dL (0.2-1.0)
[2022-12-13 12:13] LABS: BASOPHILS PERCENT AUTO 0.2 % (0.0-1.0); EOSINOPHILS PERCENT AUTO 1.7 % (1.0-3.0); HEMATOCRIT 34.6 % (40.0-54.0); HEMOGLOBIN 11.1 g/dL (14.0-18.0); LYMPHOCYTES PERCENT AUTO 13.5 % (20.5-50.1); MEAN CORPUSCULAR HEMOGLOBIN 29.9 pg (27.0-34.0); MEAN CORPUSCULAR HGB CONC 32.1 g/dL (33.0-35.0); MEAN CORPUSCULAR VOLUME 93.3 fL (80-100); MONOCYTES PERCENT AUTO 11.8 % (2-8); NEUTROPHILS PERCENT AUTO 72.8 % (42.2-75.2); PLATELET COUNT,PLT 324 10^3/uL (150-450); RED BLOOD CELL COUNT 3.71 10^6/uL (4.6-6.2); WHITE BLOOD CELL COUNT,WBC 10.6 10^3/uL (5.0-10.0)
[2022-12-13 12:37] LABS: LACTIC ACID 1.6 mmol/L (0.4-2.0)
[2022-12-13 12:38] LABS: ALBUMIN 2.8 g/dL (3.4-5.0); ANION GAP 12.9 mEq/L (7-13); BILIRUBIN TOTAL 0.3 mg/dL (0.2-1.0); BUN/CREATININE RATIO 12.5 (No establ ref range); CALCIUM 9.1 mg/dL (8.5-10.1); CREATININE 3.84 mg/dL (0.70-1.30); EST CRCL DRUG DOSING (CG) 14.22 mL/min; POTASSIUM,K 4.9 mmol/L (3.5-5.1); PROTEIN TOTAL,TP 7.5 g/dL (6.4-8.2)
[2022-12-13 12:39] LABS: A/G RATIO 0.6
[2022-12-13 13:11] LABS: CORONAVIRUS COVID-19 NAA NEGATIVE (NEGATIVE); INFLUENZA A NAA NEGATIVE (NEGATIVE); INFLUENZA B NAA NEGATIVE (NEGATIVE); RESPIRATORY SYNCYTIAL VIR NAA NEGATIVE (NEGATIVE)
== END 2022-12-13 13:45 | disposition home or self-care (01) ==
LOC: DL.ED 11:14
DX: N17.9 Acute kidney failure, unspecified (principal); I12.9 Hypertensive chronic kidney disease with stage 1 through stage 4 chronic kidney disease, or unspecified chronic kidney disease; N18.9 Chronic kidney disease, unspecified; E86.0 Dehydration; E78.00 Pure hypercholesterolemia, unspecified; K21.9 Gastro-esophageal reflux disease without esophagitis; Z88.8 Allergy status to other drugs, medicaments and biological substances; Z91.011 Allergy to milk products; Z91.048 Other nonmedicinal substance allergy status; Z79.899 Other long term (current) drug therapy; Z86.73 Personal history of transient ischemic attack (TIA), and cerebral infarction without residual deficits; Z20.822 Contact with and (suspected) exposure to COVID-19
CPT/HCPCS: 0241U; 36415; 71046; 74019; 80053; 81003; 83605; 83690; 84484; 85025; 93005; 96360; 99285; J7030; J3490

== ENCOUNTER 2022-12-21 06:36 | Emergency (ER) | payer MEDICARE, MEDICAID ==
[2022-12-21 06:52] VITALS: BP 119/69; PULSE 89
== END 2022-12-21 07:38 | disposition home or self-care (01) ==
LOC: DL.ED 06:36
DX: T83.098A Other mechanical complication of other urinary catheter, initial encounter (principal); E78.00 Pure hypercholesterolemia, unspecified; I12.9 Hypertensive chronic kidney disease with stage 1 through stage 4 chronic kidney disease, or unspecified chronic kidney disease; N18.9 Chronic kidney disease, unspecified; K21.9 Gastro-esophageal reflux disease without esophagitis; Z91.048 Other nonmedicinal substance allergy status; Z88.6 Allergy status to analgesic agent; Z91.013 Allergy to seafood; Z79.899 Other long term (current) drug therapy
CPT/HCPCS: 51702; 99283

== ENCOUNTER 2023-01-01 08:07 | Emergency (ER) | payer MEDICARE, MEDICAID ==
[~2023-01-01 08:07] MED LIST changes: +Carvedilol 25 MG Tab PO ONE; +ClonazePAM 0.5 MG Tab PO ONE; -Midazolam 1 MG/ML 2 ML SDV ONE; +PARoxetine 20 MG Tab PO ONE; +amLODIPine 5 MG Tab PO ONE; -fentaNYL 100 MCG/2 ML SDV ONE; +lamoTRIgine 100 MG Tab PO ONE
[2023-01-01] MEDS ORDERED: levETIRAcetam 500 MG Tab PO ONE (08:09)
[2023-01-01 09:16] VITALS: BP 132/87; PULSE 83
== END 2023-01-01 09:03 ==
LOC: DL.ED 08:07
DX: F88 Other disorders of psychological development (principal); Z91.148 Patient's other noncompliance with medication regimen for other reason; E78.00 Pure hypercholesterolemia, unspecified; I10 Essential (primary) hypertension; K21.9 Gastro-esophageal reflux disease without esophagitis; Z91.048 Other nonmedicinal substance allergy status; Z88.6 Allergy status to analgesic agent; Z91.011 Allergy to milk products; Z79.899 Other long term (current) drug therapy
CPT/HCPCS: 99283; A9270-GY

== ENCOUNTER 2023-06-27 09:46 | Emergency (ER) | payer MEDICARE, MEDICAID ==
[2023-06-27] MEDS ORDERED: Sodium Chloride 0.9% 10 ML Syringe FLUSH PRN (09:57)
[2023-06-27 10:08] LABS: BASOPHILS PERCENT AUTO 0.3 % (0.0-1.0); EOSINOPHILS PERCENT AUTO 2.5 % (1.0-3.0); HEMATOCRIT 34.6 % (40.0-54.0); HEMOGLOBIN 11.7 g/dL (14.0-18.0); LYMPHOCYTES PERCENT AUTO 20.9 % (20.5-50.1); MEAN CORPUSCULAR HEMOGLOBIN 33.2 pg (27.0-34.0); MEAN CORPUSCULAR HGB CONC 33.8 g/dL (33.0-35.0); MEAN CORPUSCULAR VOLUME 98.3 fL (80-100); MONOCYTES PERCENT AUTO 8.8 % (2-8); NEUTROPHILS PERCENT AUTO 67.5 % (42.2-75.2); PLATELET COUNT,PLT 337 10^3/uL (150-450); RED BLOOD CELL COUNT 3.52 10^6/uL (4.6-6.2)
[2023-06-27 10:22] LABS: PROTHROMBIN TIME 9.9 SEC (9.0-12.0); PTT,PARTIAL THROMBOPLSTIN TIME 24.6 SEC (22.0-34.0)
[2023-06-27 10:24] LABS: ALANINE AMINOTRANSFERASE,ALT 18 U/L (16-63); ALBUMIN 2.8 g/dL (3.4-5.0); ALKALINE PHOSPHATASE 104 U/L (46-116); ANION GAP 11.1 mEq/L (7-13); ASPARTATE AMNIOTRANSFERASE,AST 21 U/L (15-37); BILIRUBIN TOTAL 0.2 mg/dL (0.2-1.0); BLOOD UREA NITROGEN,BUN 30 mg/dL (7-18); BUN/CREATININE RATIO 11.6 (No establ ref range); C-REACTIVE PROTEIN 0.67 ng/dL (<=0.50); CALCIUM 9.1 mg/dL (8.5-10.1); CARBON DIOXIDE,CO2 28 mmol/L (21-32); CHLORIDE,CL 103 mmol/L (98-107); CREATININE 2.59 mg/dL (0.70-1.30); GLUCOSE RANDOM 103 mg/dL (70-99); POTASSIUM,K 4.1 mmol/L (3.5-5.1); PROTEIN TOTAL,TP 7.5 g/dL (6.4-8.2); SODIUM,NA 138 mmol/L (136-145)
[2023-06-27 10:25] LABS: ESTIMATED GFR 26 mL/min (>=60); LACTIC ACID 1.6 mmol/L (0.4-2.0)
[2023-06-27 10:31] LABS: B-TYPE NATRIURETIC PEPTIDE,BNP 60 pg/ml (0-100)
[2023-06-27 10:32] LABS: APPEARANCE,URINE CLEAR (CLEAR); BILIRUBIN,URINE NEGATIVE (NEGATIVE); COLOR,URINE YELLOW (YELLOW); GLUCOSE,URINE NEGATIVE (NEGATIVE); KETONES,URINE TRACE (NEGATIVE); LEUKOCYTE ESTERASE,URINE SMALL (NEGATIVE); NITRITE,URINE POSITIVE (NEGATIVE); OCCULT BLOOD,URINE NEGATIVE (NEGATIVE); PH,URINE 5.5 (5.0-9.0); PROTEIN,URINE TRACE (NEGATIVE); UROBILINOGEN,URINE 0.2 mg/dL (0.2-1.0)
[2023-06-27 10:37] VITALS: BP 118/69; PULSE 84
[2023-06-27 10:38] LABS: AMPHETAMINES,URINE NEGATIVE (NEGATIVE); BARBITURATES,URINE NEGATIVE (NEGATIVE); BENZODIAZEPINE,URINE NEGATIVE (NEGATIVE); MDMA (ECSTASY), URINE NEGATIVE (NEGATIVE); METHADONE,URINE NEGATIVE (NEGATIVE); METHAMPHETAMINES,URINE NEGATIVE (NEGATIVE); OPIATES,URINE NEGATIVE (NEGATIVE); OXYCODONE,URINE NEGATIVE (NEGATIVE); PHENCYCLIDINE,URINE POSITIVE (NEGATIVE); TCA,URINE NEGATIVE (NEGATIVE)
[2023-06-27 10:42] LABS: BACTERIA,URINE MODERATE /HPF (0-FEW/HPF); EPITHELIAL CELLS,URINE NOT SEEN /HPF (NOT SEEN); MUCUS,URINE NOT SEEN /LPF (NOT SEEN); RBC,URINE NOT SEEN /HPF (0-5)
[2023-06-27] MEDS ORDERED: cefTRIAXone 2 GM Vial IVPUSH ONE (10:47)
[2023-06-27] MEDS ORDERED: Sodium Chloride 0.9% 1,000 ML IV ONE (10:47)
== END 2023-06-27 12:07 | disposition home or self-care (01) ==
LOC: DL.ED 09:46
DX: N39.0 Urinary tract infection, site not specified (principal); E78.00 Pure hypercholesterolemia, unspecified; I10 Essential (primary) hypertension; K21.9 Gastro-esophageal reflux disease without esophagitis; Z79.899 Other long term (current) drug therapy; Z86.73 Personal history of transient ischemic attack (TIA), and cerebral infarction without residual deficits; Z79.82 Long term (current) use of aspirin; Z91.048 Other nonmedicinal substance allergy status; Z88.8 Allergy status to other drugs, medicaments and biological substances
CPT/HCPCS: 36415; 70450; 71045; 80053; 80305-QW; 81001; 82947; 83605; 83735; 83880; 84145; 84484; 85025; 85610; 85730; 86140; 87086; 87088; 87186; 93005; 93010; 96361; 96374; 99284; 99285-25; C1758; J0696; J3490; J7030

== ENCOUNTER 2023-07-04 10:04 | Emergency (ER) | payer MEDICARE, MEDICAID ==
[2023-07-04 10:18] VITALS: BP 124/72; PULSE 102
[2023-07-04 10:49] LABS: BASOPHILS PERCENT AUTO 0.2 % (0.0-1.0); EOSINOPHILS PERCENT AUTO 0.2 % (1.0-3.0); HEMATOCRIT 33.6 % (40.0-54.0); HEMOGLOBIN 11.3 g/dL (14.0-18.0); LYMPHOCYTES PERCENT AUTO 7.1 % (20.5-50.1); MEAN CORPUSCULAR HGB CONC 33.6 g/dL (33.0-35.0); MEAN CORPUSCULAR VOLUME 98.2 fL (80-100); MONOCYTES PERCENT AUTO 11.9 % (2-8); NEUTROPHILS PERCENT AUTO 80.6 % (42.2-75.2); PLATELET COUNT,PLT 309 10^3/uL (150-450); RED BLOOD CELL COUNT 3.42 10^6/uL (4.6-6.2); WHITE BLOOD CELL COUNT,WBC 11.8 10^3/uL (5.0-10.0)
[2023-07-04 11:12] LABS: LACTIC ACID 1.5 mmol/L (0.4-2.0)
[2023-07-04 11:14] LABS: APPEARANCE,URINE CLEAR (CLEAR); BILIRUBIN,URINE NEGATIVE (NEGATIVE); COLOR,URINE YELLOW (YELLOW); GLUCOSE,URINE NEGATIVE (NEGATIVE); KETONES,URINE NEGATIVE (NEGATIVE); LEUKOCYTE ESTERASE,URINE NEGATIVE (NEGATIVE); NITRITE,URINE NEGATIVE (NEGATIVE); OCCULT BLOOD,URINE MODERATE (NEGATIVE); PROTEIN,URINE 30 (NEGATIVE); UROBILINOGEN,URINE 0.2 mg/dL (0.2-1.0)
[2023-07-04 11:18] LABS: ALBUMIN 2.7 g/dL (3.4-5.0); ANION GAP 12.5 mEq/L (7-13); BILIRUBIN TOTAL 0.4 mg/dL (0.2-1.0); BUN/CREATININE RATIO 12.5 (No establ ref range); C-REACTIVE PROTEIN 2.65 ng/dL (<=0.50); CALCIUM 8.7 mg/dL (8.5-10.1); CREATININE 2.65 mg/dL (0.70-1.30); EST CRCL DRUG DOSING (CG) 22.34 mL/min; MAGNESIUM 1.8 mg/dL (1.8-2.4); POTASSIUM,K 4.5 mmol/L (3.5-5.1); PROTEIN TOTAL,TP 7.2 g/dL (6.4-8.2)
[2023-07-04 11:19] LABS: A/G RATIO 0.6
[2023-07-04 11:23] LABS: BACTERIA,URINE MODERATE /HPF (0-FEW/HPF); CALCIUM OXALATE CRYSTALS,URINE MODERATE /HPF (NOT SEEN); HYALINE CASTS,URINE MODERATE; MUCUS,URINE MODERATE /LPF (NOT SEEN); WBC,URINE 20-30 /HPF (0-5/HPF)
[2023-07-04 11:24] LABS: EPITHELIAL CELLS,URINE RARE /HPF (NOT SEEN)
[2023-07-04 11:25] LABS: AMORPHOUS SEDIMENT,URINE FEW /HPF (NOT SEEN)
[2023-07-04] MEDS: Sodium Chloride 0.9% 1,000 ML IV ONE (11:35)
[2023-07-04] MEDS: Sodium Chloride 0.9% 10 ML Syringe FLUSH PRN (11:35)
[2023-07-04 11:47] LABS: CORONAVIRUS COVID-19 NAA NEGATIVE (NEGATIVE); INFLUENZA A NAA NEGATIVE (NEGATIVE); INFLUENZA B NAA NEGATIVE (NEGATIVE)
== END 2023-07-04 12:36 | disposition home or self-care (01) ==
LOC: DL.ED 10:04
DX: J18.9 Pneumonia, unspecified organism (principal); I10 Essential (primary) hypertension; E78.00 Pure hypercholesterolemia, unspecified; K21.9 Gastro-esophageal reflux disease without esophagitis; Z86.73 Personal history of transient ischemic attack (TIA), and cerebral infarction without residual deficits; Z79.899 Other long term (current) drug therapy; Z91.011 Allergy to milk products; Z91.048 Other nonmedicinal substance allergy status; Z88.6 Allergy status to analgesic agent; Z20.822 Contact with and (suspected) exposure to COVID-19
CPT/HCPCS: 0240U; 36415; 70450; 80053; 81001; 83605; 83735; 85025; 86140; 87040; 96360; 99284; 99284-25; C1758; J3490; J7030

== ENCOUNTER 2023-07-05 10:55 | Emergency (ER) | payer MEDICARE, MEDICAID ==
[2023-07-05 11:12] VITALS: BP 89/63; PULSE 102
[2023-07-05 12:50] LABS: APPEARANCE,URINE CLEAR (CLEAR); BILIRUBIN,URINE NEGATIVE (NEGATIVE); COLOR,URINE YELLOW (YELLOW); GLUCOSE,URINE NEGATIVE (NEGATIVE); KETONES,URINE TRACE (NEGATIVE); LEUKOCYTE ESTERASE,URINE NEGATIVE (NEGATIVE); NITRITE,URINE NEGATIVE (NEGATIVE); OCCULT BLOOD,URINE MODERATE (NEGATIVE); PH,URINE 5.5 (5.0-9.0); PROTEIN,URINE 30 (NEGATIVE); UROBILINOGEN,URINE 0.2 mg/dL (0.2-1.0)
[2023-07-05 13:02] LABS: AMORPHOUS SEDIMENT,URINE FEW /HPF (NOT SEEN); BACTERIA,URINE RARE /HPF (0-FEW/HPF); EPITHELIAL CELLS,URINE NOT SEEN /HPF (NOT SEEN); RBC,URINE 0-5 /HPF (0-5); WBC,URINE NOT SEEN /HPF (0-5/HPF)
== END 2023-07-05 13:45 | disposition home or self-care (01) ==
LOC: DL.ED 10:55
DX: S70.01XA Contusion of right hip, initial encounter (principal); M16.0 Bilateral primary osteoarthritis of hip; I12.9 Hypertensive chronic kidney disease with stage 1 through stage 4 chronic kidney disease, or unspecified chronic kidney disease; N18.4 Chronic kidney disease, stage 4 (severe); R53.1 Weakness; R60.0 Localized edema; R29.6 Repeated falls; R62.7 Adult failure to thrive; K21.9 Gastro-esophageal reflux disease without esophagitis; E78.00 Pure hypercholesterolemia, unspecified; Z68.22 Body mass index [BMI] 22.0-22.9, adult; Z86.73 Personal history of transient ischemic attack (TIA), and cerebral infarction without residual deficits; Z79.899 Other long term (current) drug therapy; Z79.82 Long term (current) use of aspirin; Z88.8 Allergy status to other drugs, medicaments and biological substances; Z91.048 Other nonmedicinal substance allergy status; Z91.011 Allergy to milk products; W19.XXXA Unspecified fall, initial encounter
CPT/HCPCS: 81001; 99285